=== PATIENT | male | born 1945 | race Caucasian/White ===

== ENCOUNTER 2017-06-29 09:40 | Emergency (ER) | payer OTHER ==
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
--- NOTE | 2017-06-29 11:04 | RAD ---
HISTORY: Cough, fatigue COMPARISONS: February 24, 2003 VIEWS: 4: Frontal dual-energy and lateral views of the chest. FINDINGS: CARDIOMEDIASTINAL SILHOUETTE: The cardiomediastinal silhouette is normal. CAMERON: The cameron are normal. PLEURA: The costophrenic angles are sharp. No pleural abnormalities are noted. LUNG PARENCHYMA: There is a 0.7 cm nodule overlying the left midlung field, not clearly visualized on the previous examination. There is additional second nodule of the left costophrenic angle. ABDOMEN: The upper abdomen is clear. There is no subphrenic gas. BONES AND SOFT TISSUES: Degenerative changes are noted along the spine. OTHER: None. IMPRESSION: LEFT MIDLUNG NODULE WITH A QUESTIONABLE SECOND NODULE IN THE LEFT LOWER LUNG. RECOMMEND CONSIDERATION OF CORRELATION WITH CT OF THE CHEST.
[2017-06-29] MEDS ORDERED: Ondansetron ODT TAB* 4 MG PO ONE (11:17)
[2017-06-29] MEDS ORDERED: Aspirin Low Dose CHEW TAB* 81 MG PO ONE (11:39)
[2017-06-29] MEDS ORDERED: NS 0.9% 1000 ML* 1,000 ML IV ONE (11:44)
[2017-06-29 12:46] VITALS: BP 156/78
== END 2017-06-29 11:45 | disposition short-term general hospital (02) ==
LOC: UCEAST 09:40
DX: R07.9 Chest pain, unspecified (principal); E11.9 Type 2 diabetes mellitus without complications; E78.5 Hyperlipidemia, unspecified; I10 Essential (primary) hypertension; J09.X2 Influenza due to identified novel influenza A virus with other respiratory manifestations; R91.8 Other nonspecific abnormal finding of lung field; R53.1 Weakness; Z88.6 Allergy status to analgesic agent
CPT/HCPCS: 71046; 87502; 93005; 99203; A9270-GY; G0463

== ENCOUNTER 2017-06-29 12:20 | Emergency (ER) | payer OTHER ==
[2017-06-29] MEDS ORDERED: methylPREDNISolone 125 MG* 2 ML VIAL IV ONE (13:01)
[2017-06-29] MEDS ORDERED: NS 0.9% 1000 ML* 1,000 ML IV ONE (13:01)
[2017-06-29 13:36] LABS: ABS Basophils 0.1 10^3/ul (0-0.2); ABS Eosinophils 0 10^3/ul (0-0.6); ABS Lymphocytes 0.5 10^3/ul (1.0-4.8); ABS Monocytes 0.8 10^3/ul (0-0.8); ABS Neutrophils 4.4 10^3/ul (1.5-7.7); ABS Nucleated RBC 0 10^3/ul; Eosinophil % 0.5 % (0-6); Hematocrit 32 % (42-52); Hemoglobin 10.9 g/dl (14.0-18.0); Lymphocyte % 8.4 % (25-47); Mean Corpuscular HGB Conc 34 g/dl (31-36); Mean Corpuscular Hemoglobin 32 pg (27-31); Mean Corpuscular Volume 92 fL (80-94); Mean Platelet Volume 8 um3 (7.4-10.4); Nucleated Red Blood Cells % 0; Platelet Count 146 10^3/ul (150-450); Red Blood Count 3.44 10^6/ul (4.0-5.4); Red Cell Distribution Width 13 % (10.5-15); White Blood Count 5.7 10^3/ul (3.5-10.8)
[2017-06-29 13:52] LABS: EGFR Non-African American 69.1 (>60)
[2017-06-29 15:42] VITALS: BP 128/73
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
== END 2017-06-29 15:40 | disposition home or self-care (01) ==
LOC: ED 12:20
DX: J09.X2 Influenza due to identified novel influenza A virus with other respiratory manifestations (principal); R05 Cough; R11.0 Nausea
CPT/HCPCS: 36415; 80053; 83605; 83880; 84484; 85025; 93005; 99283; J2930

== ENCOUNTER 2019-07-22 13:25 | Inpatient (IN) | payer MEDICARE, OTHER ==
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
[2019-07-22 15:25] LABS: ABS Basophils 0.1 10^3/ul (0-0.2); ABS Eosinophils 0.1 10^3/ul (0-0.6); ABS Lymphocytes 1.2 10^3/ul (1.0-4.8); ABS Monocytes 0.5 10^3/ul (0-0.8); ABS Neutrophils 4.3 10^3/ul (1.5-7.7); Hematocrit 32 % (42-52); Lymphocyte % 19.9 %; Mean Corpuscular HGB Conc 34 g/dL (31-36); Mean Corpuscular Hemoglobin 32 pg (27-31); Mean Corpuscular Volume 93 fL (80-94); Nucleated Red Blood Cells % 0.1; Platelet Count 200 10^3/uL (150-450); Red Blood Count 3.46 10^6 /uL (4.18-5.48); Red Cell Distribution Width 14 % (10-15)
[2019-07-22 15:33] LABS: INR 0.96 (0.82-1.09)
[2019-07-22 15:37] LABS: Albumin 4.2 g/dL (3.2-5.2); Albumin/Globulin Ratio 1.6 (1-3); BUN/Creatinine Ratio 10.5 (8-20); Calcium 10.4 mg/dL (8.6-10.3); EGFR Non-African American 52.9 (>60); Globulin 2.7 g/dL (2-4); Potassium 4.4 mmol/L (3.5-5.0); Total Bilirubin 0.7 mg/dL (0.2-1.0); Total Protein 6.9 g/dL (6.4-8.9)
[2019-07-22] MEDS ORDERED: Morphine INJ* 2 MG/ML 1 ML SYRINGE (TWO MG - NEW SYRINGE VERSION) IV PRN (16:46)
[2019-07-22] MEDS ORDERED: Dextrose 50% VIAL 50 ml IV PUSH PRN (17:22)
[2019-07-22 17:30] LABS: Activated Partial Thrombo Time 31.7 seconds (26.0-38.0)
[2019-07-22] MEDS: Docusate CAP* 100 MG PO SCH (19:58)
[2019-07-22] MEDS: Atorvastatin* 40 MG TAB PO SCH (19:59)
[2019-07-22] MEDS: NS 0.9% 1000 ML** 1,000 ML IV SCH (20:02)
[2019-07-22] MEDS: Insulin LISPRO* 1 UNITS UNIT SUBCUT SCH (21:59)
[2019-07-22] MEDS: oxyCODONE/Acetamin 5/325 MG* TAB PO PRN (22:06)
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
[2019-07-23] MEDS: oxyCODONE/Acetamin 5/325 MG* TAB PO PRN ×2 (02:31→08:36)
[2019-07-23] MEDS: Melatonin 3 MG TAB PO PRN (02:32)
[2019-07-23 06:37] LABS: ABS Basophils 0.1 10^3/ul (0-0.2); ABS Eosinophils 0.2 10^3/ul (0-0.6); ABS Lymphocytes 1.4 10^3/ul (1.0-4.8); ABS Monocytes 0.7 10^3/ul (0-0.8); ABS Neutrophils 3.4 10^3/ul (1.5-7.7); Hematocrit 31 % (42-52); Hemoglobin 10.7 g/dL (14.0-18.0); Lymphocyte % 24.9 %; Mean Corpuscular HGB Conc 35 g/dL (31-36); Mean Corpuscular Hemoglobin 32 pg (27-31); Mean Corpuscular Volume 93 fL (80-94); Mean Platelet Volume 7.6 fL (7.4-10.4); Platelet Count 179 10^3/uL (150-450); Red Blood Count 3.32 10^6 /uL (4.18-5.48); Red Cell Distribution Width 14 % (10-15); White Blood Count 5.7 10^3/uL (3.5-10.8)
[2019-07-23 06:49] LABS: BUN/Creatinine Ratio 11.8 (8-20); Calcium 9.4 mg/dL (8.6-10.3); EGFR African American 58.3 (>60); EGFR Non-African American 48.2 (>60); Potassium 4.4 mmol/L (3.5-5.0)
[2019-07-23] MEDS: NS 0.9% 1000 ML** 1,000 ML IV SCH (07:17)
[2019-07-23] MEDS: Insulin LISPRO* 1 UNITS UNIT SUBCUT SCH ×4 (08:27→20:54)
[2019-07-23] MEDS: Docusate CAP* 100 MG PO SCH ×2 (08:27→20:53)
[2019-07-23] MEDS: Tamsulosin CAP* 0.4 MG PO SCH (08:36)
[2019-07-23] MEDS: CMCS:OMEGA-3 FATTY ACIDS (NF) 1,000 MG CAP PO SCH (08:38)
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
[2019-07-23] MEDS: Ondansetron INJ* 2 MG/ML VIAL IV PRN (11:45)
--- NOTE | 2019-07-23 12:35 | CONS ---
CONSULTATION REPORT: DATE OF CONSULT: 07/23/19 CHIEF COMPLAINT: Left hip pain. HISTORY OF PRESENT ILLNESS: Ravinder is a 74-year-old man who has a history of a left total knee replacement and a right total hip replacement done by Dr. Duran a few years ago. Yesterday, he was skiing at [place] and he fell down onto his left hip area. He said it was not a high energy fall, but he had sudden left hip pain. He was brought to the emergency department and had some x -rays, which show a comminuted displaced femoral neck fracture on the left. He also has left hip arthritis. He has a history of recurrent dislocations after his right total hip replacement, which was then revised to larger head and he has not had any dislocation since then. He also has history of some numbness in his left thigh after his knee replacement and he recently been getting some injections in his back which has been helping his left leg pain. PHYSICAL EXAM: On examination today, his foot is warm, well perfused. Neurovascular function is intact. Range of motion of his hip is painful. His skin is intact. DIAGNOSTIC STUDIES: I reviewed his x-ray, AP and lateral of the left hip which shows a comminuted femoral neck fracture with displacement. 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 PLAN: Plan is for a left total hip replacement done by Dr. Lyle and Dr. Kaufman, this was setup for tomorrow. The patient has been medically optimized. [id number]/[facility] #: [id number] [facility]
[2019-07-23] MEDS: Acetaminophen TAB* 325 MG PO PRN (13:49)
[2019-07-23] MEDS ORDERED: Ondansetron INJ* 2 MG/ML VIAL IV ONE (15:16)
[2019-07-23] MEDS ORDERED: NS 0.9% 1000 ML** 1,000 ML IV SCH (16:30)
[2019-07-23] MEDS: Scopolamine 1.5 mg* PATCH TRANSDERM SCH (17:20)
--- NOTE | 2019-07-23 18:51 | PN ---
Progress Note - Progress Note Date of Service: 07/23/19 SOAP: Subjective: Spoke with Dr. Perez about patient. Just met patient. He is retired. He fell on his left hip skiing yesterday when he hit a patch of ice. No prior history of left hip pain. History of multiple joint arthroplasties, all by Dr. Duran of [place]. Right DALE complicated by multiple dislocations postop followed by a revision right DALE in 2010. He knows that the head was 28mm, but otherwise does not have an op note or know which components were used. Also a left TKA in 2008. DM. He states that his most recent A1C was 7.4. Some recent lower back pain treated with 3 injections in a pain clinic. Some recent emesis treated with scopolamine patch. Objective: NAD LLE: - NVID - DP, PT pulses intact - Deferred passive ROM knee and hip to minimize discomfort Selected Entries 07/23/19 16:15 Temperature 98.5 F Pulse Rate 77 Respiratory 20 Rate Blood Pressure 156/80 (mmHg) O2 Sat by Pulse 92 Oximetry Laboratory Tests 07/22/19 07/22/19 07/23/19 15:10 21:05 06:25 WBC 6.0 5.7 Hct 32 L 31 L POC Glucose (mg/dL) 294 H 07/23/19 08:10 WBC Hct POC Glucose (mg/dL) 210 H X-rays: Displaced left hip femoral neck fracture. Right total hip arthroplasty in place. Assessment: HD 2 displaced left femoral neck hip fracture Plan: - Discussed with patient hip fractures and different anatomic locations of hip fractures and how they are treated surgically - Discussed risks and potential complications of surgery as well as medical risks of hip fractures - The patient is optimized/cleared per Hospitalist service - NPO after midnight - Plan for left total hip arthroplasty for fracture at 8 am Thursday morning - Discussed that I will do the procedure with my partner Dr. Kaufman - As needed, based on exam tomorrow, I might consider xrays left knee to confirm no fracture about left TKA - Current nausea/vomiting manage per Hospitalist
[2019-07-23] MEDS: Atorvastatin* 40 MG TAB PO SCH (20:53)
[2019-07-23] MEDS ORDERED: Insulin GLARGINE(*) 1 UNITS UNIT SUBCUT SCH (21:00)
[2019-07-23] MEDS ORDERED: Famotidine IV* 10 MG/ML 2 ML (20 mg) IV ONE (21:56)
[2019-07-23] MEDS ORDERED: Buffered Lidocaine 1% SYRIN* 1 ML/SYRINGE INTRADERM ONE (21:56)
[2019-07-23] MEDS ORDERED: Lactated Ringers 1000 ML Bag* 1,000 ML IV SCH (22:00)
[2019-07-24 05:16] LABS: ABS Basophils 0.1 10^3/ul (0-0.2); ABS Eosinophils 0.1 10^3/ul (0-0.6); ABS Lymphocytes 1.3 10^3/ul (1.0-4.8); ABS Monocytes 0.7 10^3/ul (0-0.8); ABS Neutrophils 5.8 10^3/ul (1.5-7.7); Eosinophil % 0.8 %; Hematocrit 32 % (42-52); Hemoglobin 10.8 g/dL (14.0-18.0); Lymphocyte % 16.1 %; Mean Corpuscular HGB Conc 34 g/dL (31-36); Mean Corpuscular Hemoglobin 32 pg (27-31); Mean Corpuscular Volume 93 fL (80-94); Mean Platelet Volume 7.7 fL (7.4-10.4); Platelet Count 179 10^3/uL (150-450); Red Cell Distribution Width 13 % (10-15); White Blood Count 7.9 10^3/uL (3.5-10.8)
[2019-07-24 05:33] LABS: BUN/Creatinine Ratio 10.8 (8-20); Calcium 9.9 mg/dL (8.6-10.3); EGFR African American 60.8 (>60); EGFR Non-African American 50.2 (>60); Potassium 4.5 mmol/L (3.5-5.0)
[2019-07-24] MEDS ORDERED: fentaNYL* 50 MCG/ML 2 ML VIAL (100 MCG VIAL) ONE (07:53)
[2019-07-24] MEDS ORDERED: Midazolam* 1 MG/ML 2 ML VIAL (2 MG) ONE (07:53)
[2019-07-24] MEDS ORDERED: Famotidine IV* 10 MG/ML 2 ML (20 mg) ONE (08:18)
[2019-07-24] MEDS ORDERED: ceFAZolin 2 GM in NS PREMIX(*) 2 GM/100 ML BAG IVPB ONE (08:22)
[2019-07-24] MEDS ORDERED: KETAMINE HCL* 50 MG/ML 10 ML VIAL ONE (08:33)
[2019-07-24] MEDS ORDERED: Propofol* 10 MG/ML 20 ML BTL ONE (08:36)
[2019-07-24] MEDS ORDERED: Succinylcholine* 20 MG/ML 10 ML VIAL ONE (08:36)
[2019-07-24] MEDS ORDERED: Ondansetron INJ* 2 MG/ML VIAL ONE (08:36)
[2019-07-24] MEDS ORDERED: Lidocaine 2% PF * 5 ML VIAL ONE (08:36)
[2019-07-24] MEDS ORDERED: Dexamethasone IV* 4 MG/ML 1 ML (4 MG) ONE (08:36)
[2019-07-24] MEDS ORDERED: Rocuronium* 10 MG/ML VIAL ONE (08:37)
[2019-07-24] MEDS ORDERED: Naloxone* 0.4 MG/ML 1 ML VIAL IV PRN (09:34)
[2019-07-24] MEDS ORDERED: fentaNYL* 50 MCG/ML 2 ML VIAL (100 MCG VIAL) IV PRN (09:34)
[2019-07-24] MEDS ORDERED: Phenylephrine 40 MCG/ML SYRINGE ONE (09:34)
[2019-07-24] MEDS ORDERED: Acetaminophen IV 1GM/100ML * 100 ML ONE (09:34)
[2019-07-24] MEDS ORDERED: diPHENhydraMINE IV* 50 MG/ML 1 ml VIAL (BENADRYL) IV PRN (09:34)
[2019-07-24] MEDS ORDERED: DiMENhydriNATE IV* 50 MG/ML VIAL IV PUSH PRN (09:34)
[2019-07-24] MEDS ORDERED: Bupivacaine 0.5% W/EPI SDV* 30 ML VIAL ONE (10:26)
[2019-07-24] MEDS: Insulin LISPRO* 1 UNITS UNIT SUBCUT SCH ×2 (10:35→13:30)
[2019-07-24] MEDS: Tamsulosin CAP* 0.4 MG PO SCH (13:30)
[2019-07-24] MEDS: Docusate CAP* 100 MG PO SCH ×3 (13:30→20:46)
[2019-07-24] MEDS: CMCS:OMEGA-3 FATTY ACIDS (NF) 1,000 MG CAP PO SCH (13:30)
[2019-07-24] MEDS ORDERED: HYDROcodone/ACETAMIN 5-325 MG* 1 TAB PO PRN (14:10)
[2019-07-24] MEDS ORDERED: oxyCODONE TAB* 5 MG TAB PO PRN (14:10)
[2019-07-24] MEDS ORDERED: traMADol TAB* 50 MG PO PRN (14:19)
[2019-07-24] MEDS ORDERED: LR @ 20 MLS/HR IV SCH (15:00)
--- NOTE | 2019-07-24 16:28 | PN ---
Subjective Date of Service: 07/24/19 Interval History: Pt has returned from surgery, pt denies any pain, nausea, vomiting, dizziness. Family History: Unchanged from Admission Social History: Unchanged from Admission Past Medical History: Unchanged from Admission Objective Active Medications: Acetaminophen (Tylenol Tab*) 650 mg PO Q4H PRN PRN Reason: MILD PAIN or TEMP > 100.4 Last Admin: 07/23/19 13:49 Dose: 650 mg Hydrocodone Bitart/Acetaminophen ([place] 5-325 Tab*) 1 tab PO Q4H PRN PRN Reason: PAIN - MODERATE Hydrocodone Bitart/Acetaminophen ([place] 5-325 Tab*) 2 tab PO Q4H PRN PRN Reason: PAIN - SEVERE Apixaban (Eliquis*) 2.5 mg PO BID [facility] Atorvastatin Calcium (Lipitor*) 40 mg PO 2100 [facility] Last Admin: 07/23/19 20:53 Dose: 40 mg Docusate Sodium (Colace Cap*) 100 mg PO TID [facility] Last Admin: 07/24/19 15:53 Dose: 100 mg Fish Oil (Fish Oil (Nf)) 1,000 mg PO DAILY [facility]; Protocol Last Admin: 07/24/19 13:30 Dose: Not Given Cefazolin Sodium 1 gm/ Sodium (Chloride) 50 mls @ 200 mls/hr IVPB Q8H [facility] Stop: 07/25/19 09:14 Lactated Ringer's (Lactated Ringers 1000 Ml Bag*) 1,000 mls @ 100 mls/hr IV PER RATE [facility] Stop: 07/25/19 00:59 Magnesium Hydroxide (Milk Of Magnesia Liq*) 30 ml PO Q6H PRN PRN Reason: CONSTIPATION Melatonin (Melatonin) 3 mg PO BEDTIME PRN PRN Reason: SLEEP Last Admin: 07/23/19 02:32 Dose: 3 mg Morphine Sulfate (Morphine Inj (Syringe))*) 2 mg IV Q4H PRN PRN Reason: BREAKHROUGH PAIN Last Admin: 07/24/19 01:21 Dose: 2 mg Ondansetron HCl (Zofran Inj*) 4 mg IV Q4H PRN PRN Reason: NAUSEA/VOMITING Last Admin: 07/23/19 11:45 Dose: 4 mg Oxycodone HCl (Roxycodone Tab*) 10 mg PO Q4H PRN PRN Reason: PAIN - SEVERE Scopolamine (Transderm-Scop 1.5 Mg Patch*) 1 patch TRANSDERM Q72H [facility] Last Admin: 07/23/19 17:20 Dose: 1 patch Tamsulosin HCl (Flomax Cap*) 0.4 mg PO DAILY [facility] Last Admin: 07/24/19 13:30 Dose: Not Given Tramadol HCl (Ultram*) 50 mg PO Q6H PRN PRN Reason: PAIN - MILD Last Admin: 07/24/19 15:53 Dose: 50 mg Vital Signs - 8 hr 07/24/19 07/24/19 07/24/19 11:54 11:55 12:00 Temperature 96.8 F Pulse Rate 89 80 Respiratory 14 18 23 Rate Blood Pressure 151/82 133/84 142/87 (mmHg) O2 Sat by Pulse 88 97 Oximetry 07/24/19 07/24/19 07/24/19 12:05 12:10 12:11 Temperature Pulse Rate 79 87 Respiratory 16 16 21 Rate Blood Pressure 144/84 138/80 (mmHg) O2 Sat by Pulse 98 96 Oximetry 07/24/19 07/24/19 07/24/19 12:15 12:16 12:20 Temperature Pulse Rate 70 70 Respiratory 14 16 16 Rate Blood Pressure 133/79 155/89 (mmHg) O2 Sat by Pulse 99 97 Oximetry 07/24/19 07/24/19 07/24/19 12:30 12:45 13:01 Temperature Pulse Rate 70 80 Respiratory 18 16 16 Rate Blood Pressure 141/83 146/73 (mmHg) O2 Sat by Pulse 96 93 Oximetry 07/24/19 07/24/19 07/24/19 13:31 14:20 15:15 Temperature 97.7 F 98.3 F 97.4 F Pulse Rate 64 69 81 Respiratory 14 16 16 Rate Blood Pressure 138/69 128/69 152/71 (mmHg) O2 Sat by Pulse 97 95 95 Oximetry 07/24/19 07/24/19 15:53 16:00 Temperature Pulse Rate Respiratory 18 Rate Blood Pressure (mmHg) O2 Sat by Pulse 95 Oximetry Oxygen Devices in Use Now: Nasal Cannula Appearance: Elderly gentleman laying in bed head elevated chatting with family at bedside. Pt does not appear to be in any distress. Ears/Nose/Mouth/Throat: NL Teeth, Lips, Gums, Clear Oropharnyx, Mucous Membranes Moist Neck: NL Appearance and Movements; NL JVP, Trachea Midline, No Thyroid Enlargement, Masses Respiratory: Symmetrical Chest Expansion and Respiratory Effort, Clear to Auscultation Cardiovascular: NL Sounds; No Murmurs; No JVD, RRR, No Edema Abdominal: NL Sounds; No Tenderness; No Distention, No Hepatosplenomegaly Extremities: No Edema, - - dressing is CDI, +2 pedal pulses bilaterally. +CMST in bilateral lower extremities. Skin: No Rash or Ulcers, No Nodules or Sclerosis Neurological: Alert and Oriented x 3, NL Sensation, NL Muscle Strength and Tone Result Diagrams: 07/25/19 05:11 07/25/19 05:11 Assess/Plan/Problems-Billing Assessment: 73 yo male patient with hx significant for Diabetes, HTN, Right hip arthroplasty, and Left Knee replacement. Pt comes to hospital after mechanical fall while skiing with left hip fracture - Patient Problems (1) Hip fracture, left Comment: -dressing CDI -No complaints of pain -Avoid percocet for pain control as patient developed nausea and vomiting previously (2) Diabetes Comment: -Holding lantus and lispro at this time. -Glimepride reordered Holding metformin as patient recieved IV contrast with CT scan 07/24/19 (3) HTN (hypertension) Comment: -Continue holding lisinopril. BP controlled at this time. (4) Hyperlipidemia Comment: -Continue Lipitor 40mg (5) Acute kidney injury Comment: Cr remains elevated at 1.52 GFR 45.3 (6) Nausea & vomiting Comment: -Pt denies nausea or vomiting today, -avoid percocet as it causes N/V (7) BPH (benign prostatic hyperplasia) Comment: -Continue Flomax 0.4mg -Urinating without flow obstruction (8) DVT prophylaxis Comment: -will be managed per orthopedics -Elequis (9) Full code status
[2019-07-24] MEDS: ceFAZolin 1 GM* X 3 DOSES POST-OP Q8H (AddVan) IVPB SCH ×2 (16:36)
--- NOTE | 2019-07-24 17:17 | OP ---
OPERATIVE REPORT: DATE OF OPERATION: 07/24/19 DATE OF : 49 SURGEON: Hai Lyle MD ASSISTANTS: 1. Jad Kaufman MD 2. SHAINA Thakkar ANESTHESIOLOGIST: Dr. Sorin Ball. ANESTHESIA: General anesthesia, local anesthesia consisting of Marcaine 0.5% with epinephrine, 30 cc. PRE-OP DIAGNOSES: 1. Left hip fracture, femoral neck, displaced. 2. Left hip osteoarthritis. POST-OP DIAGNOSES: 1. Left hip fracture, femoral neck, displaced. 2. Left hip osteoarthritis. OPERATIVE PROCEDURE: Left total hip arthroplasty. ANTIBIOTICS: Ancef 2 g IV. IV FLUIDS: 1500 cc crystalloid. ESTIMATED BLOOD LOSS: Less than 100 cc. URINE OUTPUT: 400 cc. [id number] TIME: 130 minutes. SPECIMEN: Proximal femur bone and cartilage sent to Pathology. IMPLANTS: Aníbal Accolade femoral stem size 8 with a 127-degree neck shaft angle. A 36 mm ceramic femoral head Biolox. A Trident Tritanium cluster hole acetabular shell size 54 mm. A 0-degree polyethylene insert, 36 mm, E. Two screws each 6.5 mm in diameter, one of which was 30 mm long, the other 25 mm long. COMPLICATIONS: None. INDICATIONS FOR PROCEDURE: The patient is a 74-year-old man, retired, with diabetes mellitus and a recent A1c of 7.4, who fell directly on his left hip while skiing on 07/22/19. The patient was brought to the emergency room at [facility] where he was diagnosed with a displaced left hip femoral neck fracture. Of note, the patient had had an elective right total hip arthroplasty in the distant past, which postoperatively had many instability episodes. That hip was subsequently revised in 2010 and stopped dislocating. The patient has also had a left total knee arthroplasty performed in 2008. All of these prior arthroplasty surgeries were done by Dr. Duran in [place]. The patient stated that prior to this fall, he did note that the right lower extremity was longer than the left lower extremity and that the patient helped to offset the imbalance with an insert in his left shoe, which he described as 3 /8ths of an inch in size. The patient noted that he has had some left lumbar radiculopathy, which has been treated by 3 injections in the lumbar spine in a pain clinic with some success. A partner of [facility] did a consultation on this patient. I met this patient yesterday and discussed with him potential risks and complications of surgery as well as medical problems that can happen after hip fracture. These included , but were not limited to bleeding, infection, nerve or blood vessel injury, loosening of hardware, need for revision surgery, joint instability, persistent pain, blood clot, pneumonia, atelectasis, decubitus ulcers. I talked about the anatomy of different type of hip fractures and how this patient's fracture was appropriate for joint arthroplasty as the surgical solution. The patient gave some varying answers as to how painful this left hip was prior to this recent fracture injury. Radiographically, there is clear evidence of osteoarthritis in the left hip joint. Given the better functional data resulting from full joint arthroplasty versus hemiarthroplasty in active patients along with this patient's preexisting osteoarthritis, we felt that the full total hip arthroplasty rather than the hemiarthroplasty was the most appropriate surgery. The patient understood. The patient was cleared and optimized by the hospitalist service into which he was admitted from the emergency room. DESCRIPTION OF PROCEDURE: In preoperative holding, the patient signed a written consent. Operative extremity was marked in preoperative holding. The patient was taken back to the operating room. On the stretcher, he was sedated and intubated. We transferred him to the operating room table supine. We then converted him to a lateral decubitus position. Axillary roll was placed. Pegboard was utilized and 4 pegs were placed. The patient was confirmed to be on his side without angulation anterior or posterior. All bony prominences were well padded. A Sanchez catheter had been placed with the patient supine prior to conversion to the lateral decubitus position. I placed a U-drape and a 10-10 drape about the left lower extremity prior to the scrub. The patient then had a scrub and then prep left lower extremity. We then draped the left lower extremity. Surgical time-out performed formally. I made my skin oblique incision about the posterolateral hip, for the posterior approach to the hip joint. Dissected down through soft tissue, subcutaneous tissue. Arrived at the gluteus gus and ITB muscle fascia layer. Incised that in line with my skin incision. Abducted the hip so as not to injure the deep vastus lateralis. Placed a self-retractor about the muscle fascia layer. Extended the hip and internally rotated it. Removed some trochanteric bursa. Identified external rotators. Cleared off the superficial aspect of them, removing some fat. Placed Cobra retractors deep to the hip abductors and distal to the external rotators around the lesser trochanter. Released the external rotators and posterior capsule in 1 block of tissue. Placed 4 stitches through the external rotator muscles, tendons and posterior capsule. All the purchase of the stitches was excellent. I used these stitches to manipulate the posterior tissues and prevent them from becoming injured during the case. Flexed the hip. Identified just over a centimeter proximal to the lesser trochanter after retractors have been placed and used oscillating saw to make a femoral neck cut. Used rongeur to remove small pieces of femoral neck that had been cut. Retracted femur out of the way and removed femoral head from the acetabulum. Sized the femoral head to be about 54 or 56 mm. I placed retractors circumferentially around the acetabulum. Exposure of the acetabulum was excellent. Removed labrum tissue. Removed pulvinar tissue. Excellent view of the medial wall of the acetabulum. Templating preoperatively had determined an approximate size of the components required, although we felt that the magnification marker on preoperative radiographs was actually not accurate. Started my reaming with a 42 mm reamer. Medialized a bit. Reamed up to a 54 mm reamer. Reamed with the appropriate amount of forward flexion and abduction. We opened up a 54 mm Tritanium acetabular shell. We tried impacting this into the acetabulum. The fit was not quite secure enough. There was some gapping about the periphery. We therefore decided to medialize the shell a bit. We removed the shell and reamed a little bit more medial starting with a smaller reaming size and reaming up to 53. With the medialization, we got through the sclerotic osteoarthritic acetabular bone to some bleeding bone surfaces. Impacted cup in the appropriate amount of flexion and abduction. The fit to bone was excellent. You could move the pelvis by moving the cup with its bilingual patient support caseworker still in place. Removed the bilingual patient support caseworker. Placed 2 screws through the acetabular shell both directed into the posterosuperior quadrant of the acetabulum. One screw was 30 mm long and the other was 25 mm long. These screws were placed unicortically. Irrigation. Placed a lap pad and moved to the femur. Flexed the femur. I used a canal finder followed by broaches starting with the smallest size broach. Lateralized broach appropriately to avoid varus position of the implant. Broached up to a size 8. Used a trial head. Construct was stable and appeared close to the appropriate limb length. Irrigation. Placed a size 8, 127 neck angle Accolade femoral implant. Again, trialed with a trial head. Then placed a ceramic femoral head size 36 mm. I should state that after my first trial I then moved back to the acetabulum and placed my polyethylene insert 0 degrees prior to then placing my final femoral stem implant. Final trials and final implant were quite stable. No shuck with traction or lateral traction. No impingement with full flexion or extension. With the hip not adducted but in neutral and flexed to 90 degrees, the hip was stable until at least 75 degrees of internal rotation. With the hip adducted significantly, the hip reached at least 50 degrees of internal rotation prior to any instability of the hip. Limb length, that we had measured preoperatively, improved, with significant length added to the left lower extremity compared to preoperative. However, the right lower extremity was still likely longer than the left. We had intended to make the left lower extremity long enough for stability and perhaps to even out a slight amount of the limb length discrepancy. However, we did not want to over lengthen or lengthen too much the left lower extremity given that the patient already has radicular symptoms down the left lower extremity and lengthening too much might exacerbate the symptoms. After all of the final implants had been placed, we irrigated. Closure of the external rotators was performed with 4 pairs of sutures placed through 2 drill holes in the posterior aspect of the proximal femur. Stitches were tied with the hip extended and externally rotated slightly. I also placed 2 [id number] stitches using Ethibond #1 suture between the hip abductors and the piriformis tendon. Irrigation. Closure of the gluteus gus and ITB fascial layer with 3 separate overlapping running stitches using Ethibond #1 suture. Irrigation. Closure of the subcutaneous tissue with buried simple stitches using Vicryl 2-0 suture. Some deep subcutaneous stitches were placed followed by superficial subcutaneous stitches. We then closed the skin with vance. Local anesthetic was placed. Xeroform, 4x4s, ABDs, foam tape. Drapes were taken down. Hip abduction pillow was placed. The patient was awakened, extubated, and transferred to the PACU. DISPOSITION: The patient was readmitted to the hospitalist service with Orthopedic Surgery consulting. In the PACU, the patient was neurovascularly intact distally left lower extremity. X-rays obtained in the PACU showed well placed left total hip arthroplasty hardware. No periprosthetic fracture. Limb length discrepancy appeared to be that the right lower extremity was approximately 17 to 18 mm longer than the left lower extremity. I suspect this is about the patient's pre fracture baseline. The patient will do physical therapy, weightbearing as tolerated left lower extremity. He will follow posterior hip precautions. He will get Ancef IV antibiotics for 24 hours postoperatively. He will get IV and oral pain medication for pain management. The patient will follow up with me in clinic 10 to 14 days postoperatively. Wound care instructions were discussed with the family. Disposition planning will be started. Speaking to the patient and his family, it seems that he will be appropriate for a rehabilitation facility. [id number]/CPS #: [id number] OLMAN
[2019-07-24] MEDS: HYDROcodone/ACETAMIN 5-325 MG* 1 TAB PO PRN (17:35)
[2019-07-24] MEDS: Atorvastatin* 40 MG TAB PO SCH (20:46)
[2019-07-24 22:50] LABS: ABS Lymphocytes 0.4 10^3/ul (1.0-4.8); ABS Monocytes 0.8 10^3/ul (0-0.8); ABS Neutrophils 6.6 10^3/ul (1.5-7.7); Hematocrit 27 % (42-52); Hemoglobin 9.2 g/dL (14.0-18.0); Lymphocyte % 5.4 %; Mean Corpuscular HGB Conc 34 g/dL (31-36); Mean Corpuscular Hemoglobin 32 pg (27-31); Mean Corpuscular Volume 93 fL (80-94); Mean Platelet Volume 7.8 fL (7.4-10.4); Nucleated Red Blood Cells % 0.1; Platelet Count 183 10^3/uL (150-450); Red Cell Distribution Width 13 % (10-15); White Blood Count 7.9 10^3/uL (3.5-10.8)
[2019-07-24] MEDS ORDERED: Iodixanol* (CONTRAST) 320 MG/ML 100 ML SDV IV ONE (22:59)
[2019-07-24 23:08] LABS: BUN/Creatinine Ratio 13.6 (8-20); Calcium 9.5 mg/dL (8.6-10.3); EGFR African American 46.3 (>60); EGFR Non-African American 38.3 (>60); Potassium 4.3 mmol/L (3.5-5.0)
[2019-07-24 23:10] LABS: Troponin I 0.01 ng/mL (<0.03)
[2019-07-24] MEDS ORDERED: Lactated Ringers 1000 ML Bag* 1,000 ML IV ONE (23:20)
[2019-07-25] MEDS: ceFAZolin 1 GM* X 3 DOSES POST-OP Q8H (AddVan) IVPB SCH ×4 (01:11→09:02)
[2019-07-25 05:36] LABS: Hematocrit 25 % (42-52); Hemoglobin 8.8 g/dL (14.0-18.0)
[2019-07-25 05:47] LABS: BUN/Creatinine Ratio 15.8 (8-20); Calcium 9.3 mg/dL (8.6-10.3); EGFR African American 54.8 (>60); EGFR Non-African American 45.3 (>60); Potassium 4.1 mmol/L (3.5-5.0)
[2019-07-25] MEDS: Acetaminophen TAB* 325 MG PO PRN ×2 (06:12→18:07)
[2019-07-25] MEDS: Docusate CAP* 100 MG PO SCH ×3 (09:02→22:28)
[2019-07-25] MEDS: Apixaban* 2.5 MG TAB PO SCH ×2 (09:02→22:28)
[2019-07-25] MEDS: Tamsulosin CAP* 0.4 MG PO SCH (09:02)
--- NOTE | 2019-07-25 09:34 | PN ---
Progress Note - Progress Note Date of Service: 07/25/19 SOAP: Subjective: Pt is doing well. Pain is well controlled. Denies F/C, Cp/SOB or calf pain. Objective: PE- 74 y/o WDWN M NAD, A&Ox3 LLE- dressing c/d/i, calf soft NT, +DF/PF ankle, +2 DP pulse, SILT distally Vital Signs Temp Pulse Resp BP Pulse Ox 98 F 100 19 120/94 95 07/25/19 07:19 07/25/19 07:19 07/25/19 07:19 07/25/19 07:19 07/25/19 07:19 Laboratory Results - last 24 hr 07/24/19 07/24/19 07/24/19 12:14 17:59 20:49 WBC RBC Hgb Hct MCV MCH MCHC RDW Plt Count MPV Neut % (Auto) Lymph % (Auto) [place] % (Auto) Eos % (Auto) Baso % (Auto) Absolute Neuts (auto) Absolute Lymphs (auto) Absolute Monos (auto) Absolute Eos (auto) Absolute Basos (auto) Absolute Nucleated RBC Nucleated RBC % ABG pH ABG pCO2 ABG pO2 ABG HCO3 ABG O2 Saturation ABG Base Excess Sodium Potassium Chloride Carbon Dioxide Anion Gap BUN Creatinine Est GFR ( Amer) Est GFR (Non-Af Amer) BUN/Creatinine Ratio Glucose POC Glucose (mg/dL) 77 353 H 302 H Calcium Troponin I 07/24/19 07/24/19 07/24/19 22:40 22:41 22:41 WBC 7.9 RBC 2.90 L Hgb 9.2 L Hct 27 L MCV 93 MCH 32 H MCHC 34 RDW 13 Plt Count 183 MPV 7.8 Neut % (Auto) 83.8 Lymph % (Auto) 5.4 [place] % (Auto) 10.5 Eos % (Auto) 0.0 Baso % (Auto) 0.3 Absolute Neuts (auto) 6.6 Absolute Lymphs (auto) 0.4 L Absolute Monos (auto) 0.8 Absolute Eos (auto) 0.0 Absolute Basos (auto) 0.0 Absolute Nucleated RBC 0.0 Nucleated RBC % 0.1 ABG pH 7.46 H ABG pCO2 33 L ABG pO2 74 L ABG HCO3 25.1 ABG O2 Saturation 97.1 ABG Base Excess 0.3 Sodium 134 L Potassium 4.3 Chloride 103 Carbon Dioxide 22 Anion Gap 9 BUN 24 Creatinine 1.76 H Est GFR ( Amer) 46.3 Est GFR (Non-Af Amer) 38.3 BUN/Creatinine Ratio 13.6 Glucose 349 H POC Glucose (mg/dL) Calcium 9.5 Troponin I 0.01 07/25/19 07/25/19 05:11 05:11 WBC RBC Hgb 8.8 L Hct 25 L MCV MCH MCHC RDW Plt Count MPV Neut % (Auto) Lymph % (Auto) [place] % (Auto) Eos % (Auto) Baso % (Auto) Absolute Neuts (auto) Absolute Lymphs (auto) Absolute Monos (auto) Absolute Eos (auto) Absolute Basos (auto) Absolute Nucleated RBC Nucleated RBC % ABG pH ABG pCO2 ABG pO2 ABG HCO3 ABG O2 Saturation ABG Base Excess Sodium 134 L Potassium 4.1 Chloride 103 Carbon Dioxide 25 Anion Gap 6 BUN 24 Creatinine 1.52 H Est GFR ( Amer) 54.8 Est GFR (Non-Af Amer) 45.3 BUN/Creatinine Ratio 15.8 Glucose 265 H POC Glucose (mg/dL) Calcium 9.3 Troponin I Assessment: POD 1 S/P left total hip arthroplasty Plan: WBAT-PT/OT Posterior hip precautions Cont norco for pain, avoid percocet because it causes stomach upset Eliquis for DVT prophylaxis
[2019-07-25] MEDS: CMCS:OMEGA-3 FATTY ACIDS (NF) 1,000 MG CAP PO SCH (09:38)
[2019-07-25] MEDS: Magnesium Hydroxide LIQ* 30 ML UDC PO PRN (11:38)
--- NOTE | 2019-07-25 14:06 | PN ---
Subjective Date of Service: 07/25/19 Interval History: Pt denies any pain at rest. Denies chest pain, SOB, Dizziness. Reports numbness and tingling in his feet related to his fibromyalgia. Denies nausea or vomiting. Reports that he has been up to restroom but unable to have bowel movement thus far. Denies dysuria or hematuria. Family History: Unchanged from Admission Social History: Unchanged from Admission Past Medical History: Unchanged from Admission Objective Active Medications: Acetaminophen (Tylenol Tab*) 650 mg PO Q4H PRN PRN Reason: MILD PAIN or TEMP > 100.4 Last Admin: 07/25/19 06:12 Dose: 650 mg Hydrocodone Bitart/Acetaminophen ([place] 5-325 Tab*) 1 tab PO Q4H PRN PRN Reason: PAIN - MODERATE Last Admin: 07/24/19 17:35 Dose: 1 tab Hydrocodone Bitart/Acetaminophen ([place] 5-325 Tab*) 2 tab PO Q4H PRN PRN Reason: PAIN - SEVERE Apixaban (Eliquis*) 2.5 mg PO BID [facility] Last Admin: 07/25/19 09:02 Dose: 2.5 mg Atorvastatin Calcium (Lipitor*) 40 mg PO 2100 [facility] Last Admin: 07/24/19 20:46 Dose: 40 mg Docusate Sodium (Colace Cap*) 100 mg PO TID [facility] Last Admin: 07/25/19 09:02 Dose: 100 mg Fish Oil (Fish Oil (Nf)) 1,000 mg PO DAILY [facility]; Protocol Last Admin: 07/25/19 09:38 Dose: 1,000 mg Glimepiride (Glimepiride (Nf)) 1 mg PO BID [facility] Magnesium Hydroxide (Milk Of Magnesia Liq*) 30 ml PO Q6H PRN PRN Reason: CONSTIPATION Last Admin: 07/25/19 11:38 Dose: 30 ml Melatonin (Melatonin) 3 mg PO BEDTIME PRN PRN Reason: SLEEP Last Admin: 07/23/19 02:32 Dose: 3 mg Morphine Sulfate (Morphine Inj (Syringe))*) 2 mg IV Q4H PRN PRN Reason: BREAKHROUGH PAIN Last Admin: 07/24/19 01:21 Dose: 2 mg Ondansetron HCl (Zofran Inj*) 4 mg IV Q4H PRN PRN Reason: NAUSEA/VOMITING Last Admin: 07/23/19 11:45 Dose: 4 mg Oxycodone HCl (Roxycodone Tab*) 10 mg PO Q4H PRN PRN Reason: PAIN - SEVERE Scopolamine (Transderm-Scop 1.5 Mg Patch*) 1 patch TRANSDERM Q72H [facility] Last Admin: 07/23/19 17:20 Dose: 1 patch Tamsulosin HCl (Flomax Cap*) 0.4 mg PO DAILY [facility] Last Admin: 07/25/19 09:02 Dose: 0.4 mg Tramadol HCl (Ultram*) 50 mg PO Q6H PRN PRN Reason: PAIN - MILD Last Admin: 07/24/19 15:53 Dose: 50 mg Vital Signs - 8 hr 07/25/19 07/25/19 07/25/19 07:15 07:19 11:57 Temperature 98 F Pulse Rate 100 Respiratory 19 18 Rate Blood Pressure 120/94 (mmHg) O2 Sat by Pulse 95 95 Oximetry Oxygen Devices in Use Now: Nasal Cannula - 3LNC Appearance: Sitting in chair, sleeping. Does not appear to be in any distress. Eyes: No Scleral Icterus, PERRLA Ears/Nose/Mouth/Throat: NL Teeth, Lips, Gums, Clear Oropharnyx, Mucous Membranes Moist Neck: NL Appearance and Movements; NL JVP, Trachea Midline Respiratory: Symmetrical Chest Expansion and Respiratory Effort, Clear to Auscultation Cardiovascular: NL Sounds; No Murmurs; No JVD, RRR, No Edema Abdominal: NL Sounds; No Tenderness; No Distention, No Hepatosplenomegaly Lymphatic: No Cervical Adenopathy Extremities: - - +1 nonpitting edema noted in bilateral feet. Skin: No Rash or Ulcers, No Nodules or Sclerosis Neurological: Alert and Oriented x 3, NL Sensation, NL Muscle Strength and Tone Result Diagrams: 07/25/19 05:11 07/25/19 05:11 Assess/Plan/Problems-Billing Assessment: 73 yo male patient with hx significant for Diabetes, HTN, Right hip arthroplasty , and Left Knee replacement. Pt comes to hospital after mechanical fall while skiing with left hip fracture - Patient Problems (1) Hip fracture, left Comment: -dressing CDI -No complaints of pain -Avoid percocet for pain control as patient developed nausea and vomiting previously (2) Diabetes Comment: -Holding lantus and lispro at this time. -Glimepride reordered Holding metformin as patient recieved IV contrast with CT scan 07/24/19 (3) HTN (hypertension) Comment: -Continue holding lisinopril. BP controlled at this time. (4) Hyperlipidemia Comment: -Continue Lipitor 40mg (5) Acute kidney injury Comment: Cr remains elevated at 1.52 GFR 45.3 (6) Nausea & vomiting Comment: -Pt denies nausea or vomiting today, -avoid percocet as it causes N/V (7) BPH (benign prostatic hyperplasia) Comment: -Continue Flomax 0.4mg -Urinating without flow obstruction (8) DVT prophylaxis Comment: -will be managed per orthopedics -Elekun (9) Full code status
[2019-07-25] MEDS ORDERED: Dextrose 50% Syringe 50 ML* 25 GM/50 ML SYRINGE IV PUSH PRN (14:24)
[2019-07-25] MEDS: Insulin LISPRO* 1 UNITS UNIT SUBCUT SCH ×2 (18:07→22:30)
[2019-07-25] MEDS: CMC:Glimepiride (NF) 2 MG TAB PO SCH (22:28)
[2019-07-25] MEDS: Atorvastatin* 40 MG TAB PO SCH (22:28)
[2019-07-26 04:55] LABS: ABS Lymphocytes 1.1 10^3/ul (1.0-4.8); ABS Neutrophils 4.3 10^3/ul (1.5-7.7); Eosinophil % 0.5 %; Hematocrit 24 % (42-52); Lymphocyte % 16.5 %; Mean Corpuscular HGB Conc 34 g/dL (31-36); Mean Corpuscular Hemoglobin 31 pg (27-31); Mean Corpuscular Volume 92 fL (80-94); Mean Platelet Volume 7.3 fL (7.4-10.4); Platelet Count 152 10^3/uL (150-450); Red Blood Count 2.54 10^6 /uL (4.18-5.48); Red Cell Distribution Width 13 % (10-15); White Blood Count 6.5 10^3/uL (3.5-10.8)
[2019-07-26 05:16] LABS: BUN/Creatinine Ratio 17.1 (8-20); Calcium 9.3 mg/dL (8.6-10.3); EGFR African American 60.3 (>60); EGFR Non-African American 49.8 (>60); Potassium 4.1 mmol/L (3.5-5.0)
[2019-07-26] MEDS: Acetaminophen TAB* 325 MG PO PRN ×3 (05:22→21:51)
[2019-07-26] MEDS: Scopolamine 1.5 mg* PATCH TRANSDERM SCH ×2 (07:42→16:59)
[2019-07-26] MEDS: CMCS:OMEGA-3 FATTY ACIDS (NF) 1,000 MG CAP PO SCH (08:55)
[2019-07-26] MEDS: Docusate CAP* 100 MG PO SCH ×3 (08:55→21:51)
[2019-07-26] MEDS: Tamsulosin CAP* 0.4 MG PO SCH (08:55)
[2019-07-26] MEDS: CMC:Glimepiride (NF) 2 MG TAB PO SCH (08:55)
[2019-07-26] MEDS: Apixaban* 2.5 MG TAB PO SCH ×2 (08:55→21:51)
[2019-07-26] MEDS: Insulin LISPRO* 1 UNITS UNIT SUBCUT SCH ×4 (08:56→21:52)
[2019-07-26] MEDS: Magnesium Hydroxide LIQ* 30 ML UDC PO PRN ×2 (08:57→21:52)
--- NOTE | 2019-07-26 09:32 | PN ---
Progress Note - Progress Note Date of Service: 07/26/19 SOAP: Subjective: []Pt seen at bedside. He feels well without complaint. Denies LLE pain. Denies CP, SOB, dizziness, nausea, and pain. Objective: [] Gen: NAD, feels well LLE: Dressing CDI, thigh soft, DF/PF intact, DP2+, sensation intact to light touch distally Calves supple and nontender without erythema, edema or palpable cords Assessment: []POD 2 S/P left total hip arthroplasty Plan: WBAT-PT/OT Posterior hip precautions Cont norco for pain, avoid percocet because it causes stomach upset Dressing change tomorrow and daily thereafter Eliquis for DVT prophylaxis Monitor Temp and HR, low grade tachy. Encouraged IS, fluid intake Vital Signs Temp 99.2 F 07/26/19 08:00 Pulse 101 07/26/19 08:00 Resp 18 07/26/19 08:00 BP 134/74 07/26/19 08:00 Pulse Ox 99 07/26/19 08:00 Intake & Output 07/25/19 07/26/19 07/26/19 18:59 06:59 18:59 Intake Total 1793 700 Output Total 1475 200 Balance 318 500 Intake: IV Fluids 1019 LR 1019 IVPB 54 ABX - CEFAZOLIN 54 Oral 720 700 Output: Urine 1475 200 Other: Estimated Void Medium # Voids 2 1 Laboratory Last Values WBC 6.5 10^3/uL (3.5-10.8) 07/26/19 04:49 RBC 2.54 10^6 /uL (4.18-5.48) L 07/26/19 04:49 Hgb 8.0 g/dL (14.0-18.0) L 07/26/19 04:49 Hct 24 % (42-52) L 07/26/19 04:49 MCV 92 fL (80-94) 07/26/19 04:49 MCH 31 pg (27-31) 07/26/19 04:49 MCHC 34 g/dL (31-36) 07/26/19 04:49 RDW 13 % (10-15) 07/26/19 04:49 Plt Count 152 10^3/uL (150-450) 07/26/19 04:49 MPV 7.3 fL (7.4-10.4) L 07/26/19 04:49 Neut % (Auto) 67.3 % 07/26/19 04:49 Lymph % (Auto) 16.5 % 07/26/19 04:49 [place] % (Auto) 15.1 % 07/26/19 04:49 Eos % (Auto) 0.5 % 07/26/19 04:49 Baso % (Auto) 0.6 % 07/26/19 04:49 Absolute Neuts (auto) 4.3 10^3/ul (1.5-7.7) 07/26/19 04:49 Absolute Lymphs (auto) 1.1 10^3/ul (1.0-4.8) 07/26/19 04:49 Absolute Monos (auto) 1.0 10^3/ul (0-0.8) H 07/26/19 04:49 Absolute Eos (auto) 0.0 10^3/ul (0-0.6) 07/26/19 04:49 Absolute Basos (auto) 0.0 10^3/ul (0-0.2) 07/26/19 04:49 Absolute Nucleated RBC 0.0 10^3/ul 07/26/19 04:49 Nucleated RBC % 0.0 07/26/19 04:49 INR (Anticoag Therapy) 0.96 (0.82-1.09) 07/22/19 15:10 APTT 31.7 seconds (26.0-38.0) 07/22/19 15:10 ABG pH 7.46 (7.35-7.45) H 07/24/19 22:40 ABG pCO2 33 mmHg (35-45) L 07/24/19 22:40 ABG pO2 74 mmHg (80-100) L 07/24/19 22:40 ABG HCO3 25.1 mmol/L (19-31) 07/24/19 22:40 ABG O2 Saturation 97.1 % (94.0-98.0) 07/24/19 22:40 ABG Base Excess 0.3 mmol/L (-2.0-2.0) 07/24/19 22:40 Sodium 136 mmol/L (135-145) 07/26/19 04:49 Potassium 4.1 mmol/L (3.5-5.0) 07/26/19 04:49 Chloride 103 mmol/L (101-111) 07/26/19 04:49 Carbon Dioxide 26 mmol/L (22-32) 07/26/19 04:49 Anion Gap 7 mmol/L (2-11) 07/26/19 04:49 BUN 24 mg/dL (6-24) 07/26/19 04:49 Creatinine 1.40 mg/dL (0.67-1.17) H 07/26/19 04:49 Est GFR ( Amer) 60.3 (>60) 07/26/19 04:49 Est GFR (Non-Af Amer) 49.8 (>60) 07/26/19 04:49 BUN/Creatinine Ratio 17.1 (8-20) 07/26/19 04:49 Glucose 192 mg/dL (70-100) H 07/26/19 04:49 POC Glucose (mg/dL) 244 mg/dL (70-100) H 07/26/19 07:42 Hemoglobin A1c 7.8 % (4.0-5.6) H 07/25/19 05:11 Calcium 9.3 mg/dL (8.6-10.3) 07/26/19 04:49 Total Bilirubin 0.70 mg/dL (0.2-1.0) 07/22/19 15:10 AST 15 U/L (13-39) 07/22/19 15:10 ALT 24 U/L (7-52) 07/22/19 15:10 Alkaline Phosphatase 63 U/L (34-104) 07/22/19 15:10 Troponin I 0.01 ng/mL (<0.03) 07/24/19 22:41 Total Protein 6.9 g/dL (6.4-8.9) 07/22/19 15:10 Albumin 4.2 g/dL (3.2-5.2) 07/22/19 15:10 Globulin 2.7 g/dL (2-4) 07/22/19 15:10 Albumin/Globulin Ratio 1.6 (1-3) 07/22/19 15:10
--- NOTE | 2019-07-26 10:17 | PN ---
Subjective Date of Service: 07/26/19 Interval History: Pt sitting up in chair, in NAD. States he is feeling okay but tired. States little pain at this time. Denies any headache, CP, SOB, abdominal discomfort. Has not had BM but is passing flatus, does not feel bloated. Denies any unusual numbness/tingling or swelling. Family History: Unchanged from Admission Social History: Unchanged from Admission Past Medical History: Unchanged from Admission Objective Active Medications: Acetaminophen (Tylenol Tab*) 650 mg PO Q4H PRN PRN Reason: MILD PAIN or TEMP > 100.4 Last Admin: 07/26/19 05:22 Dose: 650 mg Hydrocodone Bitart/Acetaminophen ([place] 5-325 Tab*) 1 tab PO Q4H PRN PRN Reason: PAIN - MODERATE Last Admin: 07/24/19 17:35 Dose: 1 tab Hydrocodone Bitart/Acetaminophen ([place] 5-325 Tab*) 2 tab PO Q4H PRN PRN Reason: PAIN - SEVERE Apixaban (Eliquis*) 2.5 mg PO BID [facility] Last Admin: 07/26/19 08:55 Dose: 2.5 mg Atorvastatin Calcium (Lipitor*) 40 mg PO 2100 [facility] Last Admin: 07/25/19 22:28 Dose: 40 mg Dextrose (D50w Syringe 50 Ml*) 12.5 gm IV PUSH .FOR FS < 60 - SS PRN PRN Reason: FS < 60 Docusate Sodium (Colace Cap*) 100 mg PO TID [facility] Last Admin: 07/26/19 08:55 Dose: 100 mg Fish Oil (Fish Oil (Nf)) 1,000 mg PO DAILY [facility]; Protocol Last Admin: 07/26/19 08:55 Dose: 1,000 mg Glimepiride (Glimepiride (Nf)) 1 mg PO BID [facility] Last Admin: 07/26/19 08:55 Dose: 1 mg Insulin Human Lispro (Humalog*) 0 units SUBCUT ACHS [facility]; Protocol Last Admin: 07/26/19 08:56 Dose: 4 units Magnesium Hydroxide (Milk Of Magnesia Liq*) 30 ml PO Q6H PRN PRN Reason: CONSTIPATION Last Admin: 07/26/19 08:57 Dose: 30 ml Melatonin (Melatonin) 3 mg PO BEDTIME PRN PRN Reason: SLEEP Last Admin: 07/23/19 02:32 Dose: 3 mg Ondansetron HCl (Zofran Inj*) 4 mg IV Q4H PRN PRN Reason: NAUSEA/VOMITING Last Admin: 07/23/19 11:45 Dose: 4 mg Scopolamine (Transderm-Scop 1.5 Mg Patch*) 1 patch TRANSDERM Q72H [facility] Last Admin: 07/26/19 07:42 Dose: 1 patch Tamsulosin HCl (Flomax Cap*) 0.4 mg PO DAILY [facility] Last Admin: 07/26/19 08:55 Dose: 0.4 mg Vital Signs - 8 hr 07/26/19 07/26/19 07/26/19 03:53 08:00 09:00 Temperature 99.7 F 99.2 F Pulse Rate 99 101 Respiratory 16 18 18 Rate Blood Pressure 148/65 134/74 (mmHg) O2 Sat by Pulse 100 99 Oximetry Oxygen Devices in Use Now: Nasal Cannula Appearance: sitting up in chair, in NAD Eyes: No Scleral Icterus, - - PERRL Neck: - - supple Respiratory: Symmetrical Chest Expansion and Respiratory Effort, Clear to Auscultation Cardiovascular: RRR - no murmurs, rubs or gallops Abdominal: - - BS throughout, abdomen mildly distended but soft and non-tender Extremities: - - trace non-pitting edema L thigh Skin: - - dressing CDI to L hip Neurological: Alert and Oriented x 3 - but can be difficult to get straight answers from, often leads into story telling Nutrition: Taking PO's Result Diagrams: 07/26/19 04:49 07/26/19 04:49 Assess/Plan/Problems-Billing Assessment: 73 yo male patient with hx significant for Diabetes, HTN, Right hip arthroplasty , and Left Knee replacement. Pt comes to hospital after mechanical fall while skiing and sustaining L hip Fx. - Patient Problems (1) Hip fracture, left Current Visit: Yes Status: Acute Code(s): S72.002A - FRACTURE OF UNSP PART OF NECK OF LEFT FEMUR, INIT SNOMED Code(s): 493649517 Comment: s/p L DALE 07/24, dressing CDI, adequate pain control -management per orthopedics - seeking PMRU services at d/c, not yet approved (2) Diabetes Current Visit: Yes Status: Acute Code(s): E11.9 - TYPE 2 DIABETES MELLITUS WITHOUT COMPLICATIONS SNOMED Code(s): 79067160 Comment: -Lispro SS -Glimepride dose increased to 2mg BID for better control -No plans to restart metformin in relation to kidney function (3) Acute kidney injury Current Visit: Yes Status: Acute Code(s): N17.9 - ACUTE KIDNEY FAILURE, UNSPECIFIED SNOMED Code(s): 14758244 Comment: Likely attributable to prior dehydration Cr 1.4, improving GFR 49.8 - encourage POs - continue to monitor (4) Anemia Current Visit: Yes Status: Acute Code(s): D64.9 - ANEMIA, UNSPECIFIED SNOMED Code(s): 406720982 Comment: HH 8.0/24. Has continued to trend downward since surgery on 07/24. Has also had continued mild tachycardia. Is otherwise asymptomatic. - 1L IVF bolus - Continue to trend (5) HTN (hypertension) Current Visit: Yes Status: Acute Code(s): I10 - ESSENTIAL (PRIMARY) HYPERTENSION SNOMED Code(s): 76865820 Comment: Adequate BP control - continue to hold lisinopril in light of this as well as resolving ANNA (6) Hyperlipidemia Current Visit: Yes Status: Acute Code(s): E78.5 - HYPERLIPIDEMIA, UNSPECIFIED SNOMED Code(s): 30615563 Comment: -Continue Lipitor 40mg (7) BPH (benign prostatic hyperplasia) Current Visit: Yes Status: Acute Code(s): N40.0 - BENIGN PROSTATIC HYPERPLASIA WITHOUT LOWER URINRY TRACT SYMP SNOMED Code(s): 602594764 Comment: -Continue Flomax 0.4mg (8) Full code status Current Visit: Yes Status: Acute Code(s): Z78.9 - OTHER SPECIFIED HEALTH STATUS SNOMED Code(s): 463986683 (9) DVT prophylaxis Current Visit: Yes Status: Acute Code(s): Z29.9 - ENCOUNTER FOR PROPHYLACTIC MEASURES, UNSPECIFIED SNOMED Code(s): 511554682 Comment: -will be managed per orthopedics -Eliquis Status and Disposition: status: stable disposition: surgical stay unit Attending: Alessandra Schultz
[2019-07-26] MEDS ORDERED: NS 0.9% 1000 ML** 1,000 ML IV ONE (13:22)
[2019-07-26] MEDS: Atorvastatin* 40 MG TAB PO SCH (21:51)
[2019-07-26] MEDS: CMCS: Glimepiride (NF) 2 MG TAB PO SCH (21:51)
[2019-07-27] MEDS: Ondansetron INJ* 2 MG/ML VIAL IV PRN (05:55)
[2019-07-27 06:01] LABS: ABS Basophils 0.1 10^3/ul (0-0.2); ABS Neutrophils 5.3 10^3/ul (1.5-7.7); Eosinophil % 0.6 %; Hematocrit 24 % (42-52); Hemoglobin 8.4 g/dL (14.0-18.0); Lymphocyte % 13.4 %; Mean Corpuscular HGB Conc 35 g/dL (31-36); Mean Corpuscular Hemoglobin 32 pg (27-31); Mean Corpuscular Volume 92 fL (80-94); Mean Platelet Volume 8.1 fL (7.4-10.4); Platelet Count 197 10^3/uL (150-450); Red Blood Count 2.59 10^6 /uL (4.18-5.48); Red Cell Distribution Width 13 % (10-15); White Blood Count 7.4 10^3/uL (3.5-10.8)
[2019-07-27 06:20] LABS: BUN/Creatinine Ratio 22.6 (8-20); Calcium 9.5 mg/dL (8.6-10.3); EGFR African American 61.8 (>60); EGFR Non-African American 51.1 (>60); Potassium 4.5 mmol/L (3.5-5.0)
[2019-07-27] MEDS: Insulin LISPRO* 1 UNITS UNIT SUBCUT SCH ×4 (08:42→21:21)
[2019-07-27] MEDS: Docusate CAP* 100 MG PO SCH (09:30)
[2019-07-27] MEDS: Tamsulosin CAP* 0.4 MG PO SCH (09:30)
[2019-07-27] MEDS: Apixaban* 2.5 MG TAB PO SCH ×2 (09:30→19:47)
[2019-07-27] MEDS: CMCS: Glimepiride (NF) 2 MG TAB PO SCH ×2 (09:31→20:03)
[2019-07-27] MEDS: CMCS:OMEGA-3 FATTY ACIDS (NF) 1,000 MG CAP PO SCH (09:31)
[2019-07-27] MEDS ORDERED: Senna TAB 8.6 mg* TAB PO PRN (10:11)
[2019-07-27] MEDS: metFORMIN* 500 MG TAB PO SCH ×2 (11:08→17:15)
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
--- NOTE | 2019-07-27 14:19 | PN ---
Subjective Date of Service: 07/27/19 Interval History: Patient is feeling well today. Patient has minimal pain in his leg. Patient denies F/C, N/V, CP, SOB, abdominal pain, constipation, dizziness, palpitations , or other pain. Family History: Unchanged from Admission Social History: Unchanged from Admission Past Medical History: Unchanged from Admission Objective Active Medications: Acetaminophen (Tylenol Tab*) 650 mg PO Q4H PRN PRN Reason: MILD PAIN or TEMP > 100.4 Last Admin: 07/26/19 21:51 Dose: 650 mg Hydrocodone Bitart/Acetaminophen ([place] 5-325 Tab*) 1 tab PO Q4H PRN PRN Reason: PAIN - MODERATE Last Admin: 07/24/19 17:35 Dose: 1 tab Hydrocodone Bitart/Acetaminophen ([place] 5-325 Tab*) 2 tab PO Q4H PRN PRN Reason: PAIN - SEVERE Apixaban (Eliquis*) 2.5 mg PO BID [facility] Last Admin: 07/27/19 09:30 Dose: 2.5 mg Atorvastatin Calcium (Lipitor*) 40 mg PO 2100 [facility] Last Admin: 07/26/19 21:51 Dose: 40 mg Dextrose (D50w Syringe 50 Ml*) 12.5 gm IV PUSH .FOR FS < 60 - SS PRN PRN Reason: FS < 60 Fish Oil (Fish Oil (Nf)) 1,000 mg PO DAILY [facility]; Protocol Last Admin: 07/27/19 09:31 Dose: 1,000 mg Glimepiride (Glimepiride (Nf)) 2 mg PO BID [facility] Last Admin: 07/27/19 09:31 Dose: 2 mg Insulin Human Lispro (Humalog*) 0 units SUBCUT ACHS [facility]; Protocol Last Admin: 07/27/19 13:28 Dose: 6 units Lisinopril (Prinivil Tab*) 5 mg PO DAILY [facility] Magnesium Hydroxide (Milk Of Magnesia Liq*) 30 ml PO Q6H PRN PRN Reason: CONSTIPATION Last Admin: 07/26/19 21:52 Dose: 30 ml Melatonin (Melatonin) 3 mg PO BEDTIME PRN PRN Reason: SLEEP Last Admin: 07/23/19 02:32 Dose: 3 mg Metformin HCl (Glucophage*) 500 mg PO 0800,1700 [facility] Last Admin: 07/27/19 11:08 Dose: 500 mg Ondansetron HCl (Zofran Inj*) 4 mg IV Q4H PRN PRN Reason: NAUSEA/VOMITING Last Admin: 07/27/19 05:55 Dose: 4 mg Scopolamine (Transderm-Scop 1.5 Mg Patch*) 1 patch TRANSDERM Q72H [facility] Last Admin: 07/26/19 16:59 Dose: Not Given Senna ([place] 8.6 Mg Tab*) 1 tab PO DAILY PRN PRN Reason: CONSTIPATION Tamsulosin HCl (Flomax Cap*) 0.4 mg PO DAILY [facility] Last Admin: 07/27/19 09:30 Dose: 0.4 mg Vital Signs - 8 hr 07/27/19 07/27/19 07/27/19 07:00 08:00 11:00 Temperature 98.1 F 98.1 F Pulse Rate 90 101 Respiratory 14 18 16 Rate Blood Pressure 154/69 105/86 (mmHg) O2 Sat by Pulse 93 95 Oximetry Oxygen Devices in Use Now: Nasal Cannula Appearance: Patient is a 74yo male who appears stated age and is sitting in the bed in [facility]. Eyes: No Scleral Icterus, PERRLA Ears/Nose/Mouth/Throat: NL Teeth, Lips, Gums, Clear Oropharnyx, Mucous Membranes Moist Neck: NL Appearance and Movements; NL JVP, Trachea Midline Respiratory: Symmetrical Chest Expansion and Respiratory Effort, Clear to Auscultation Cardiovascular: NL Sounds; No Murmurs; No JVD, RRR, - - Trace B/L LE edema. Abdominal: NL Sounds; No Tenderness; No Distention, No Hepatosplenomegaly Lymphatic: No Cervical Adenopathy Extremities: No Clubbing, Cyanosis Skin: No Nodules or Sclerosis, - - Left hip surgical incision unremarkable. Neurological: Alert and Oriented x 3, NL Sensation, NL Muscle Strength and Tone , - - CN II-XII intact. Result Diagrams: 07/27/19 05:55 07/27/19 05:55 Assess/Plan/Problems-Billing Assessment: 73 yo male patient with hx significant for Diabetes, HTN, Right hip arthroplasty , and Left Knee replacement. Pt comes to hospital after mechanical fall while skiing and sustaining L hip Fx. - Patient Problems (1) Hip fracture, left Current Visit: Yes Status: Acute Code(s): S72.002A - FRACTURE OF UNSP PART OF NECK OF LEFT FEMUR, INIT SNOMED Code(s): 886256020 Comment: - S/P LTHA 07/24, dressing CDI, adequate pain control - management per orthopedics - seeking PMRU services at d/c, not yet approved - PT/OT, bowel regimen (2) Acute kidney injury Current Visit: Yes Status: Acute Code(s): N17.9 - ACUTE KIDNEY FAILURE, UNSPECIFIED SNOMED Code(s): 00765495 Comment: - Unclear baseline, Cret 1.37 - Continue to monitor, this may be patient's baseline, appears euvolemic (3) Anemia Current Visit: Yes Status: Acute Code(s): D64.9 - ANEMIA, UNSPECIFIED SNOMED Code(s): 036255596 Comment: - Due to acute blood loss - No indication for transfusion at this time - Stable. (4) BPH (benign prostatic hyperplasia) Current Visit: Yes Status: Acute Code(s): N40.0 - BENIGN PROSTATIC HYPERPLASIA WITHOUT LOWER URINRY TRACT SYMP SNOMED Code(s): 618365040 Comment: -Continue Flomax 0.4mg (5) Diabetes Current Visit: Yes Status: Acute Code(s): E11.9 - TYPE 2 DIABETES MELLITUS WITHOUT COMPLICATIONS SNOMED Code(s): 20276830 Comment: - Poor Control - Lispro SS - Glimepride dose increased to 2mg BID for better control - Restart Metformin at decreased dose, monitor renal function - Patient would strongly prefer no insulin for BG control at D/C - Consider addition of other oral antihyperglycemics. (6) HTN (hypertension) Current Visit: Yes Status: Acute Code(s): I10 - ESSENTIAL (PRIMARY) HYPERTENSION SNOMED Code(s): 70597518 Comment: - BP occasionally high - Resume Lisinopril and monitor Cret. (7) Hyperlipidemia Current Visit: Yes Status: Acute Code(s): E78.5 - HYPERLIPIDEMIA, UNSPECIFIED SNOMED Code(s): 70476101 Comment: -Continue Lipitor 40mg (8) Nausea & vomiting Current Visit: Yes Status: Acute Code(s): R11.2 - NAUSEA WITH VOMITING, UNSPECIFIED SNOMED Code(s): 58665804 Comment: - Brief N/V today, then resolved - Continue anti-emetics, likely due to pain medication. (9) DVT prophylaxis Current Visit: Yes Status: Acute Code(s): Z29.9 - ENCOUNTER FOR PROPHYLACTIC MEASURES, UNSPECIFIED SNOMED Code(s): 348326847 Comment: -Eliquis 2.5mg BID for 30 days. (10) Full code status Current Visit: Yes Status: Acute Code(s): Z78.9 - OTHER SPECIFIED HEALTH STATUS SNOMED Code(s): 895221134 Status and Disposition: status: stable disposition: surgical stay unit
[2019-07-27] MEDS: Acetaminophen TAB* 325 MG PO PRN (19:47)
[2019-07-27] MEDS: Atorvastatin* 40 MG TAB PO SCH (19:47)
[2019-07-27 20:15] LABS: Urine Appearance Clear; Urine Bilirubin Negative (Negative); Urine Blood 1+ (Negative); Urine Color Yellow; Urine Glucose 3+(>=500 mg/dL) (Negative); Urine Ketones Negative (Negative); Urine Nitrite Negative (Negative); Urine Protein Negative (Negative); Urine Specific Gravity 1.022 (1.010-1.030); Urine Urobilinogen Negative (Negative)
[2019-07-27 20:20] LABS: Urine Bacteria Absent (Absent); Urine Red Blood Cell Trace(0-2/hpf) (Absent); Urine White Blood Cell Absent (Absent)
[2019-07-28] MEDS: Ondansetron INJ* 2 MG/ML VIAL IV PRN (01:10)
[2019-07-28] MEDS: metFORMIN* 500 MG TAB PO SCH ×2 (08:57→18:04)
[2019-07-28] MEDS: CMCS: Glimepiride (NF) 2 MG TAB PO SCH ×2 (08:57→21:03)
[2019-07-28] MEDS: Lisinopril TAB* 5 MG PO SCH (08:57)
[2019-07-28] MEDS: Tamsulosin CAP* 0.4 MG PO SCH (08:57)
[2019-07-28] MEDS: CMCS:OMEGA-3 FATTY ACIDS (NF) 1,000 MG CAP PO SCH (08:57)
[2019-07-28] MEDS: Apixaban* 2.5 MG TAB PO SCH ×2 (08:57→21:03)
[2019-07-28] MEDS: Insulin LISPRO* 1 UNITS UNIT SUBCUT SCH ×6 (08:59→21:03)
--- NOTE | 2019-07-28 10:24 | PN ---
Subjective Date of Service: 07/28/19 Interval History: Patient again had an episode overnight of nausea and vomiting undigested food. Patient states he felt better after this. Patient is having BMs, but hadn't for a couple days before yesterday. Patient denies ongoing nausea, F/C, CP, SOB, dizziness, pain, or other pain. Family History: Unchanged from Admission Social History: Unchanged from Admission Past Medical History: Unchanged from Admission Objective Active Medications: Acetaminophen (Tylenol Tab*) 650 mg PO Q4H PRN PRN Reason: MILD PAIN or TEMP > 100.4 Last Admin: 07/27/19 19:47 Dose: 650 mg Hydrocodone Bitart/Acetaminophen ([place] 5-325 Tab*) 1 tab PO Q4H PRN PRN Reason: PAIN - MODERATE Last Admin: 07/24/19 17:35 Dose: 1 tab Hydrocodone Bitart/Acetaminophen ([place] 5-325 Tab*) 2 tab PO Q4H PRN PRN Reason: PAIN - SEVERE Apixaban (Eliquis*) 2.5 mg PO BID [facility] Last Admin: 07/28/19 08:57 Dose: 2.5 mg Atorvastatin Calcium (Lipitor*) 40 mg PO 2100 [facility] Last Admin: 07/27/19 19:47 Dose: 40 mg Dextrose (D50w Syringe 50 Ml*) 12.5 gm IV PUSH .FOR FS < 60 - SS PRN PRN Reason: FS < 60 Fish Oil (Fish Oil (Nf)) 1,000 mg PO DAILY [facility]; Protocol Last Admin: 07/28/19 08:57 Dose: 1,000 mg Glimepiride (Glimepiride (Nf)) 2 mg PO BID [facility] Last Admin: 07/28/19 08:57 Dose: 2 mg Insulin Glargine (Lantus(*)) 15 units SUBCUT Q24H [facility] Insulin Human Lispro (Humalog*) 0 units SUBCUT ACHS [facility]; Protocol Last Admin: 07/28/19 08:59 Dose: 8 units Insulin Human Lispro (Humalog*) 5 units SUBCUT AC [facility] Lisinopril (Prinivil Tab*) 5 mg PO DAILY [facility] Last Admin: 07/28/19 08:57 Dose: 5 mg Magnesium Hydroxide (Milk Of Magnesia Liq*) 30 ml PO Q6H PRN PRN Reason: CONSTIPATION Last Admin: 07/26/19 21:52 Dose: 30 ml Melatonin (Melatonin) 3 mg PO BEDTIME PRN PRN Reason: SLEEP Last Admin: 07/23/19 02:32 Dose: 3 mg Metformin HCl (Glucophage*) 500 mg PO 0800,1700 [facility] Last Admin: 07/28/19 08:57 Dose: 500 mg Ondansetron HCl (Zofran Inj*) 4 mg IV Q4H PRN PRN Reason: NAUSEA/VOMITING Last Admin: 07/28/19 01:10 Dose: 4 mg Senna (Senokot 8.6 Mg Tab*) 1 tab PO DAILY PRN PRN Reason: CONSTIPATION Tamsulosin HCl (Flomax Cap*) 0.4 mg PO DAILY [facility] Last Admin: 07/28/19 08:57 Dose: 0.4 mg Vital Signs - 8 hr 07/28/19 07/28/19 07/28/19 04:17 08:00 08:12 Temperature 98 F 98.2 F Pulse Rate 94 71 Respiratory 16 18 12 Rate Blood Pressure 151/72 140/71 (mmHg) O2 Sat by Pulse 98 98 Oximetry Oxygen Devices in Use Now: Nasal Cannula Appearance: Patient is a 74yo male who appears stated age and is sitting in the bed in [facility]. Eyes: No Scleral Icterus, PERRLA Ears/Nose/Mouth/Throat: NL Teeth, Lips, Gums, Clear Oropharnyx, Mucous Membranes Moist Neck: NL Appearance and Movements; NL JVP, Trachea Midline Respiratory: Symmetrical Chest Expansion and Respiratory Effort, Clear to Auscultation Cardiovascular: NL Sounds; No Murmurs; No JVD, RRR, No Edema Abdominal: NL Sounds; No Tenderness; No Distention, No Hepatosplenomegaly Lymphatic: No Cervical Adenopathy Extremities: No Edema, No Clubbing, Cyanosis Skin: No Nodules or Sclerosis, - - Left Hip Incision unremarkable. Neurological: Alert and Oriented x 3, NL Sensation, NL Muscle Strength and Tone , - Result Diagrams: 07/27/19 05:55 07/27/19 05:55 Assess/Plan/Problems-Billing Assessment: 73 yo male patient with hx significant for Diabetes, HTN, Right hip arthroplasty , and Left Knee replacement. Pt comes to hospital after mechanical fall while skiing and sustaining L hip Fx. - Patient Problems (1) Hip fracture, left Current Visit: Yes Status: Acute Code(s): S72.002A - FRACTURE OF UNSP PART OF NECK OF LEFT FEMUR, INIT SNOMED Code(s): 234567274 Comment: - S/P LTHA 07/24, dressing CDI, adequate pain control - Management per orthopedics - Seeking PMRU services at d/c, not yet approved - PT/OT, bowel regimen - Avoid Opiates as much as possible for constipation and nausea. (2) Acute kidney injury Current Visit: Yes Status: Acute Code(s): N17.9 - ACUTE KIDNEY FAILURE, UNSPECIFIED SNOMED Code(s): 34237143 Comment: - Unclear baseline, Cret 1.37 - Continue to monitor, this may be patient's baseline, appears euvolemic (3) Anemia Current Visit: Yes Status: Acute Code(s): D64.9 - ANEMIA, UNSPECIFIED SNOMED Code(s): 159137681 Comment: - Due to acute blood loss - No indication for transfusion at this time - Stable. (4) BPH (benign prostatic hyperplasia) Current Visit: Yes Status: Acute Code(s): N40.0 - BENIGN PROSTATIC HYPERPLASIA WITHOUT LOWER URINRY TRACT SYMP SNOMED Code(s): 318038634 Comment: -Continue Flomax 0.4mg (5) Diabetes Current Visit: Yes Status: Acute Code(s): E11.9 - TYPE 2 DIABETES MELLITUS WITHOUT COMPLICATIONS SNOMED Code(s): 14278836 Comment: - Poor Control - Lispro SS - Glimepride dose increased to 2mg BID for better control - Restart Metformin at decreased dose, monitor renal function - Patient would strongly prefer no insulin for BG control at D/C - Add on basal insulin and scheduled mealtime insulin. (6) HTN (hypertension) Current Visit: Yes Status: Acute Code(s): I10 - ESSENTIAL (PRIMARY) HYPERTENSION SNOMED Code(s): 08593515 Comment: - BP occasionally high - Resume Lisinopril and monitor Cret. (7) Hyperlipidemia Current Visit: Yes Status: Acute Code(s): E78.5 - HYPERLIPIDEMIA, UNSPECIFIED SNOMED Code(s): 91051019 Comment: -Continue Lipitor 40mg (8) Nausea & vomiting Current Visit: Yes Status: Acute Code(s): R11.2 - NAUSEA WITH VOMITING, UNSPECIFIED SNOMED Code(s): 04209382 Comment: - Brief N/V again today, then resolved - Continue anti-emetics - Avoid Opiates - Unclear cause, likely post-operative complication. (9) DVT prophylaxis Current Visit: Yes Status: Acute Code(s): Z29.9 - ENCOUNTER FOR PROPHYLACTIC MEASURES, UNSPECIFIED SNOMED Code(s): 522019599 Comment: -Eliquis 2.5mg BID for 30 days. Started 07/25 (10) Full code status Current Visit: Yes Status: Acute Code(s): Z78.9 - OTHER SPECIFIED HEALTH STATUS SNOMED Code(s): 872649095 Status and Disposition: status: stable disposition: surgical stay unit, hopeful D/C soon to PMRU vs other rehab.
[2019-07-28 10:45] LABS: BUN/Creatinine Ratio 21.9 (8-20); Calcium 9.9 mg/dL (8.6-10.3); EGFR African American 61.8 (>60); EGFR Non-African American 51.1 (>60); Potassium 4.4 mmol/L (3.5-5.0)
[2019-07-28] MEDS: Insulin GLARGINE(*) 1 UNITS UNIT SUBCUT SCH (13:04)
--- NOTE | 2019-07-28 16:23 | PN ---
Progress Note - Progress Note Date of Service: 07/28/19 SOAP: Subjective: []Pt seen at bedside, no concerns today. Hip pain well controlled Objective: []Gen: NAD, appears well LLE: Dressing changed, incision is CDI 1 drop of serous dc from distal 1/3 if incision, no erythema surrounding. thigh soft, DF/PF intact, DP2+, sensation intact to light touch distally Calves supple and nontender without erythema, edema or palpable cords Assessment: []POD 4 S/P left total hip arthroplasty Plan: wbat posterior hip precautions
[2019-07-28] MEDS: Acetaminophen TAB* 325 MG PO PRN (19:33)
[2019-07-28] MEDS: Atorvastatin* 40 MG TAB PO SCH (21:03)
--- NOTE | 2019-07-28 21:34 | DS ---
CC: Dr. Matt Arias; Dr. Hai Lyle * DISCHARGE SUMMARY: DATE OF ADMISSION: 07/22/19 DATE OF DISCHARGE: Unknown. PRIMARY CARE PROVIDER: Dr. Matt Arias. MY ATTENDING WHILE IN THE HOSPITAL: Dr. Davonte Negron.* (DICTATED BY SHAINA MILAN) CONSULTING ORTHOPEDIST: Dr. Hai Lyle. PRIMARY DISCHARGE DIAGNOSES: 1. Left total hip replacement due to left femoral neck fracture due to mechanical fall. 2. Postoperative tachycardia, improving. 3. Postoperative nausea and vomiting, improving. 4. Hypoxia, improving. 5. Anemia, stable. 6. Acute kidney injury, resolved. SECONDARY DISCHARGE DIAGNOSES: 1. Diabetes mellitus, type 2. 2. Chronic kidney disease. 3. Hypertension. 4. Hyperlipidemia. 5. History of diverticulitis. 6. Fibromyalgia. STUDIES DONE WHILE IN THE HOSPITAL: Hip and pelvis x-ray from 07/22/19, read as femoral neck fracture, overriding of the fracture fragments. Chest x-ray from 07/22/19, read as no active cardiopulmonary disease. Hip x-ray from 07/24/19, read as status post bilateral hip arthroplasty. Thoracic CTA from 07/24/19, read as no pulmonary emboli, no additional findings to correlate the patient's symptomatology and inferior lingular pulmonary nodule based on Fleischner criteria is low risk and no followup indicated. MEDICATIONS AT DISCHARGE: 1. Tylenol 650 mg p.o. q.4 hours as needed. 2. [place] 5/325 one tab p.o. q.4 hours as needed. 3. Eliquis 2.5 mg p.o. b.i.d. for 30 total days until 08/23/19. 4. Lipitor 40 mg p.o. daily. 5. Fish oil 1000 mg p.o. daily. 6. Glimepiride 2 mg p.o. b.i.d. scheduled. 7. Insulin glargine 50 units subcutaneous q.24 hours as needed. 8. Insulin lispro 25 units subcutaneous with meals. 9. Insulin lispro sliding scale. 10. Lisinopril 5 mg p.o. daily. 11. Magnesium hydroxide 30 mL p.o. q.6 hours as needed for constipation. 12. Melatonin 3 mg p.o. at bedtime as needed for sleep. 13. Metformin 500 mg p.o. b.i.d. 14. Senna 1 tab p.o. daily as needed. 15. Tamsulosin 0.4 mg p.o. daily. 16. Zofran 4 mg ODT as needed. 17. Loratadine 10 mg p.o. daily. 18. Methocarbamol 500 mg p.o. t.i.d. as needed. 19. Naproxen 220 mg p.o. daily as needed. 20. Trazodone 50 mg p.o. at bedtime as needed. 21. Valacyclovir 1 mg p.o. daily as needed. HOSPITAL COURSE: This is a brief summary of the patient's presentation. For more details, please see history and physical from Martinez Sinclair NP on 07/22/19. In brief, the patient is a 74-year-old male with past medical history significant for the above, who was in his normal state of health until on , he was out skiing and fell on his left hip on the ice with sudden severe pain without striking his head or loss of consciousness. The patient was brought into the hospital by ambulance. The patient was seen in consultation by Dr. Adriana Santizo, who recommended a total hip arthroplasty, which was performed on 07/24/19. The patient was mildly anemic on presentation, which got worse after surgery. The patient's creatinine is elevated from his previous known baseline, but this was over 2 years old and may not represent a true baseline. The patient had no other signs of infection or other concerns. The patient tolerated the surgery well, however, postoperatively became tachycardic , hypoxic and had a chest CTA as above, which showed no reason for this including pulmonary embolism and the patient's oxygen was able to be weaned. The patient had significant issues with blood glucose control postoperatively. The patient's metformin was held for his ANNA and contrast use, but then was resumed at a decreased rate due to his kidney disease. The patient's glimepiride was also initially held, but then resumed. Neither of these were successful in adequately controlling his blood sugars. So, as above, insulin glargine and scheduled mealtime insulin were added on. The patient expressed a strong interest in maintaining only oral medications if possible; however, this was explained to him that this was not possible. The patient's tachycardia improved with time. The patient had episodes with episodes overnight several days during the latter part of his hospitalization where he would vomit undigested food. This was attributed to slow intestinal transit related to surgery and pain medications, though the patient's opiate pain medication was not being used avidly. The patient had no other previous history of this and seemed to be improving. The patient was accepted to [facility] and is currently awaiting insurance authorization. DISCHARGE PLAN BY PROBLEM: 1. Left total hip arthroplasty related to left femoral neck fracture. The patient appears to be doing well with physical therapy, but he is in need of rehab, so it will likely be performed at [facility] or at different rehab facility. The patient's pain has been well controlled. Continue the patient's oxycodone, Robaxin and Tylenol as well as Naproxen. The patient was persistently hypoxic and tachycardic after surgery. Those two are improving. The patient had no PE. Continue the patient's bowel regimen. The patient should follow up with Orthopedics in 2 weeks for wound check and removal of vance. 2. Diabetes mellitus, type 2. The patient's blood sugars have been uncontrolled. The patient was just started on insulin glargine, scheduled mealtime insulin as well as insulin sliding scale, metformin and glipizide. The patient's blood sugars are likely elevated in the setting of strain from surgery. As the patient gets far away from surgery, the patient will be monitored for hypoglycemia and his insulin should be preferentially taken away over oral antihyperglycemic medications. 3. Nausea and vomiting of unclear cause. Continue outpatient Zofran ODT. 4. Hypertension. The patient is currently normotensive. Continue the patient' s lisinopril. 5. Acute kidney injury. I suspect the patient is back down to his baseline creatinine around 1.37, as the patient appears euvolemic and his creatinine has been in normal state of health. 6. BPH. Continue Flomax. 7. DVT prophylaxis: Eliquis for 30 total days until 08/22/19. 8. Hypercholesterolemia. Continue the patient's Lipitor and fish oil. 9. Disposition: Unknown. 10. The patient is stable. SHAINA MILAN [id number]/[facility] #: [id number] [facility]. [facility]IAL HOSPITALRomina
[2019-07-29] MEDS: Acetaminophen TAB* 325 MG PO PRN (02:16)
[2019-07-29] MEDS: Melatonin 3 MG TAB PO PRN (02:17)
[2019-07-29] MEDS: metFORMIN* 500 MG TAB PO SCH ×2 (08:33→18:00)
[2019-07-29] MEDS: CMCS: Glimepiride (NF) 2 MG TAB PO SCH ×2 (08:33→20:49)
[2019-07-29] MEDS: HYDROcodone/ACETAMIN 5-325 MG* 1 TAB PO PRN (08:34)
[2019-07-29] MEDS: CMCS:OMEGA-3 FATTY ACIDS (NF) 1,000 MG CAP PO SCH (08:34)
[2019-07-29] MEDS: Apixaban* 2.5 MG TAB PO SCH ×2 (08:34→20:49)
[2019-07-29] MEDS: Tamsulosin CAP* 0.4 MG PO SCH (08:34)
[2019-07-29] MEDS: Lisinopril TAB* 5 MG PO SCH (08:34)
[2019-07-29] MEDS: Insulin LISPRO* 1 UNITS UNIT SUBCUT SCH ×7 (09:22→20:49)
[2019-07-29] MEDS: Insulin GLARGINE(*) 1 UNITS UNIT SUBCUT SCH (09:22)
--- NOTE | 2019-07-29 16:02 | PN ---
Subjective Date of Service: 07/29/19 Interval History: Sitting in chair on assessment with family at bedside. Reports pain is well controlled. Denies episode of nausea or vomiting last evening. Reports he is having regular BMs and last BM was today. Reports he is voiding without difficulty. Denies cp, sob, palpitations, fever, chills, nausea, vomiting. Family History: Unchanged from Admission Social History: Unchanged from Admission Past Medical History: Unchanged from Admission Objective Active Medications: Acetaminophen (Tylenol Tab*) 650 mg PO Q4H PRN PRN Reason: MILD PAIN or TEMP > 100.4 Last Admin: 07/29/19 02:16 Dose: 650 mg Hydrocodone Bitart/Acetaminophen ([place] 5-325 Tab*) 1 tab PO Q4H PRN PRN Reason: PAIN - MODERATE Last Admin: 07/29/19 08:34 Dose: 1 tab Hydrocodone Bitart/Acetaminophen ([place] 5-325 Tab*) 2 tab PO Q4H PRN PRN Reason: PAIN - SEVERE Apixaban (Eliquis*) 2.[address] [facility] Last Admin: 07/29/19 08:34 Dose: 2.5 mg Atorvastatin Calcium (Lipitor*) [address] [facility] Last Admin: 07/28/19 21:03 Dose: 40 mg Dextrose (D50w Syringe 50 Ml*) 12.5 gm IV PUSH .FOR FS < 60 - SS PRN PRN Reason: FS < 60 Fish Oil (Fish Oil (Nf)) 1,[address] [facility]; Protocol Last Admin: 07/29/19 08:34 Dose: 1,000 mg Glimepiride (Glimepiride (Nf)) [address] [facility] Last Admin: 07/29/19 08:33 Dose: 2 mg Insulin Glargine (Lantus(*)) [address] [facility] Last Admin: 07/29/19 09:22 Dose: 15 units Insulin Human Lispro (Humalog*) [address] [facility]; Protocol Last Admin: 07/29/19 12:59 Dose: 4 units Insulin Human Lispro (Humalog*) [address] [facility] Last Admin: 07/29/19 12:59 Dose: 5 units Lisinopril (Prinivil Tab*) [address] [facility] Last Admin: 07/29/19 08:34 Dose: 5 mg Magnesium Hydroxide (Milk Of Magnesia Liq*) 30 ml PO Q6H PRN PRN Reason: CONSTIPATION Last Admin: 07/26/19 21:52 Dose: 30 ml Melatonin (Melatonin) 3 mg PO BEDTIME PRN PRN Reason: SLEEP Last Admin: 07/29/19 02:17 Dose: 3 mg Metformin HCl (Glucophage*) 500 mg PO 0800,1700 [facility] Last Admin: 07/29/19 08:33 Dose: 500 mg Ondansetron HCl (Zofran Inj*) 4 mg IV Q4H PRN PRN Reason: NAUSEA/VOMITING Last Admin: 07/28/19 01:10 Dose: 4 mg Senna (Senokot 8.6 Mg Tab*) 1 tab PO DAILY PRN PRN Reason: CONSTIPATION Tamsulosin HCl (Flomax Cap*) 0.[address] [facility] Last Admin: 07/29/19 08:34 Dose: 0.4 mg Vital Signs - 8 hr 07/29/19 07/29/19 07/29/19 08:00 08:04 08:34 Temperature 97.4 F Pulse Rate 88 Respiratory 18 16 18 Rate Blood Pressure 134/63 (mmHg) O2 Sat by Pulse 98 98 Oximetry 07/29/19 07/29/19 10:21 11:41 Temperature 97.5 F Pulse Rate 89 Respiratory 18 16 Rate Blood Pressure 137/65 (mmHg) O2 Sat by Pulse 96 Oximetry Oxygen Devices in Use Now: None Appearance: Comfortable, NAD Eyes: No Scleral Icterus Ears/Nose/Mouth/Throat: Clear Oropharnyx, Mucous Membranes Moist Neck: NL Appearance and Movements; NL JVP Respiratory: Symmetrical Chest Expansion and Respiratory Effort, Clear to Auscultation Cardiovascular: NL Sounds; No Murmurs; No JVD, RRR, No Edema Abdominal: NL Sounds; No Tenderness; No Distention Lymphatic: No Cervical Adenopathy Extremities: No Edema Skin: No Rash or Ulcers Neurological: Alert and Oriented x 3 Nutrition: Taking PO's Result Diagrams: 07/27/19 05:55 07/28/19 10:14 Additional Lab and Data: Laboratory Results - last 24 hr 07/28/19 07/28/19 07/29/19 17:10 20:56 08:28 POC Glucose (mg/dL) 216 H 242 H 162 H 07/29/19 11:43 POC Glucose (mg/dL) 239 H Microbiology and Other Data: . Assess/Plan/Problems-Billing Assessment: 73 yo male patient with hx significant for Diabetes, HTN, Right hip arthroplasty , and Left Knee replacement. Pt comes to hospital after mechanical fall while skiing and sustaining L hip Fx. - Patient Problems (1) Hip fracture, left Comment: - S/P LTHA 07/24, dressing CDI, adequate pain control - Management per orthopedics - Seeking PMRU services at d/c, not yet approved - PT/OT, bowel regimen - Avoid Opiates as much as possible for constipation and nausea. (2) Acute kidney injury Comment: - Unclear baseline at last creatinine before this visit was 06/2017 and was 1.06. - Recent Cret 1.37 - Continue to monitor, this may be patient's baseline, appears euvolemic (3) Anemia Comment: - H&H stable - Due to acute blood loss - No indication for transfusion at this time (4) BPH (benign prostatic hyperplasia) Comment: - Denies urinary symptoms - Continue Flomax 0.4mg (5) Diabetes Comment: - Poor Control - Lispro SS - Glimepride dose increased to 2mg BID for better control - Restart Metformin at decreased dose, monitor renal function - Patient would strongly prefer no insulin for BG control at D/C - Add on basal insulin and scheduled mealtime insulin. (6) HTN (hypertension) Current Visit: Yes Status: Acute Code(s): I10 - ESSENTIAL (PRIMARY) HYPERTENSION SNOMED Code(s): 61403975 Comment: - BP occasionally high - Resume Lisinopril and monitor Cret. (7) Hyperlipidemia Comment: - Continue Lipitor 40mg (8) Nausea & vomiting Comment: - Denies any episodes of N/V in last 24 hrs. - Had bried N/V episodes previously on this admission - Continue anti-emetics - Avoid Opiates - Unclear cause, likely post-operative complication. (9) DVT prophylaxis Comment: -Eliquis 2.5mg BID for 30 days. Started 07/25 (10) Full code status Status and Disposition: status: stable disposition: surgical stay unit, hopeful D/C soon to PMRU vs other rehab. Attending: Arash Fuentes
[2019-07-29] MEDS: Atorvastatin* 40 MG TAB PO SCH (20:49)
[2019-07-30 05:04] LABS: ABS Basophils 0.1 10^3/ul (0-0.2); ABS Eosinophils 0.1 10^3/ul (0-0.6); ABS Lymphocytes 1.3 10^3/ul (1.0-4.8); ABS Monocytes 0.8 10^3/ul (0-0.8); ABS Neutrophils 4.1 10^3/ul (1.5-7.7); Eosinophil % 1.9 %; Hematocrit 23 % (42-52); Hemoglobin 7.8 g/dL (14.0-18.0); Lymphocyte % 20.9 %; Mean Corpuscular HGB Conc 34 g/dL (31-36); Mean Corpuscular Hemoglobin 32 pg (27-31); Mean Corpuscular Volume 93 fL (80-94); Mean Platelet Volume 7.1 fL (7.4-10.4); Nucleated Red Blood Cells % 0.1; Platelet Count 266 10^3/uL (150-450); Red Blood Count 2.47 10^6 /uL (4.18-5.48); Red Cell Distribution Width 13 % (10-15); White Blood Count 6.4 10^3/uL (3.5-10.8)
[2019-07-30 05:20] LABS: BUN/Creatinine Ratio 17.7 (8-20); Calcium 9.2 mg/dL (8.6-10.3); EGFR African American 69.3 (>60); EGFR Non-African American 57.3 (>60); Potassium 3.9 mmol/L (3.5-5.0)
[2019-07-30] MEDS: metFORMIN* 500 MG TAB PO SCH ×2 (09:16→17:53)
[2019-07-30] MEDS: CMCS: Glimepiride (NF) 2 MG TAB PO SCH ×2 (09:16→21:13)
[2019-07-30] MEDS: Tamsulosin CAP* 0.4 MG PO SCH (09:17)
[2019-07-30] MEDS: Insulin LISPRO* 1 UNITS UNIT SUBCUT SCH ×7 (09:18→21:15)
[2019-07-30] MEDS: Apixaban* 2.5 MG TAB PO SCH ×2 (09:18→21:13)
[2019-07-30] MEDS: CMCS:OMEGA-3 FATTY ACIDS (NF) 1,000 MG CAP PO SCH (09:18)
[2019-07-30] MEDS: Lisinopril TAB* 5 MG PO SCH (09:47)
[2019-07-30] MEDS: Insulin GLARGINE(*) 1 UNITS UNIT SUBCUT SCH (09:47)
--- NOTE | 2019-07-30 10:52 | PN ---
Progress Note - Progress Note Date of Service: 07/30/19 SOAP: Subjective: Pt seen and examined sitting in chair. Complains of pain only when walking. Denies CP, SOB, F/C. Vital Signs: Temp Pulse Resp BP Pulse Ox 98.7 F 96 16 130/84 98 07/30/19 08:00 07/30/19 08:00 07/30/19 08:00 07/30/19 08:00 07/30/19 08:00 Laboratory Last Values WBC 6.4 10^3/uL (3.5-10.8) 07/30/19 04:38 RBC 2.47 10^6 /uL (4.18-5.48) L 07/30/19 04:38 Hgb 7.8 g/dL (14.0-18.0) L 07/30/19 04:38 Hct 23 % (42-52) L 07/30/19 04:38 MCV 93 fL (80-94) 07/30/19 04:38 MCH 32 pg (27-31) H 07/30/19 04:38 MCHC 34 g/dL (31-36) 07/30/19 04:38 RDW 13 % (10-15) 07/30/19 04:38 Plt Count 266 10^3/uL (150-450) 07/30/19 04:38 MPV 7.1 fL (7.4-10.4) L 07/30/19 04:38 Neut % (Auto) 63.5 % 07/30/19 04:38 Lymph % (Auto) 20.9 % 07/30/19 04:38 [place] % (Auto) 12.4 % 07/30/19 04:38 Eos % (Auto) 1.9 % 07/30/19 04:38 Baso % (Auto) 1.3 % 07/30/19 04:38 Absolute Neuts (auto) 4.1 10^3/ul (1.5-7.7) 07/30/19 04:38 Absolute Lymphs (auto) 1.3 10^3/ul (1.0-4.8) 07/30/19 04:38 Absolute Monos (auto) 0.8 10^3/ul (0-0.8) 07/30/19 04:38 Absolute Eos (auto) 0.1 10^3/ul (0-0.6) 07/30/19 04:38 Absolute Basos (auto) 0.1 10^3/ul (0-0.2) 07/30/19 04:38 Absolute Nucleated RBC 0.0 10^3/ul 07/30/19 04:38 Nucleated RBC % 0.1 07/30/19 04:38 INR (Anticoag Therapy) 0.96 (0.82-1.09) 07/22/19 15:10 APTT 31.7 seconds (26.0-38.0) 07/22/19 15:10 ABG pH 7.46 (7.35-7.45) H 07/24/19 22:40 ABG pCO2 33 mmHg (35-45) L 07/24/19 22:40 ABG pO2 74 mmHg (80-100) L 07/24/19 22:40 ABG HCO3 25.1 mmol/L (19-31) 07/24/19 22:40 ABG O2 Saturation 97.1 % (94.0-98.0) 07/24/19 22:40 ABG Base Excess 0.3 mmol/L (-2.0-2.0) 07/24/19 22:40 Sodium 136 mmol/L (135-145) 07/30/19 04:38 Potassium 3.9 mmol/L (3.5-5.0) 07/30/19 04:38 Chloride 103 mmol/L (101-111) 07/30/19 04:38 Carbon Dioxide 25 mmol/L (22-32) 07/30/19 04:38 Anion Gap 8 mmol/L (2-11) 07/30/19 04:38 BUN 22 mg/dL (6-24) 07/30/19 04:38 Creatinine 1.24 mg/dL (0.67-1.17) H 07/30/19 04:38 Est GFR ( Amer) 69.3 (>60) 07/30/19 04:38 Est GFR (Non-Af Amer) 57.3 (>60) 07/30/19 04:38 BUN/Creatinine Ratio 17.7 (8-20) 07/30/19 04:38 Glucose 178 mg/dL (70-100) H 07/30/19 04:38 POC Glucose (mg/dL) 204 mg/dL (70-100) H 07/30/19 07:44 Hemoglobin A1c 7.8 % (4.0-5.6) H 07/25/19 05:11 Calcium 9.2 mg/dL (8.6-10.3) 07/30/19 04:38 Total Bilirubin 0.70 mg/dL (0.2-1.0) 07/22/19 15:10 AST 15 U/L (13-39) 07/22/19 15:10 ALT 24 U/L (7-52) 07/22/19 15:10 Alkaline Phosphatase 63 U/L (34-104) 07/22/19 15:10 Troponin I 0.01 ng/mL (<0.03) 07/24/19 22:41 Total Protein 6.9 g/dL (6.4-8.9) 07/22/19 15:10 Albumin 4.2 g/dL (3.2-5.2) 07/22/19 15:10 Globulin 2.7 g/dL (2-4) 07/22/19 15:10 Albumin/Globulin Ratio 1.6 (1-3) 07/22/19 15:10 Urine Color Yellow 07/27/19 19:35 Urine Appearance Clear 07/27/19 19:35 Urine pH 5.0 (5-9) 07/27/19 19:35 Ur Specific [place] 1.022 (1.010-1.030) 07/27/19 19:35 Urine Protein Negative (Negative) 07/27/19 19:35 Urine Ketones Negative (Negative) 07/27/19 19:35 Urine Blood 1+ (Negative) A 07/27/19 19:35 Urine Nitrate Negative (Negative) 07/27/19 19:35 Urine Bilirubin Negative (Negative) 07/27/19 19:35 Urine Urobilinogen Negative (Negative) 07/27/19 19:35 Ur Leukocyte Esterase Negative (Negative) 07/27/19 19:35 Urine WBC (Auto) Absent (Absent) 07/27/19 19:35 Urine RBC (Auto) Trace(0-2/hpf) (Absent) 07/27/19 19:35 Urine Bacteria Absent (Absent) 07/27/19 19:35 Urine Glucose 3+(>=500 mg/dl) (Negative) A 07/27/19 19:35 Objective: A&O x3, NAD Dressing changed, Incision C/D/I, Calves soft and nontender, No edema, NVI distally Assessment: s/p left TKA POD #6 Plan: OOB, PT/OT WBAT Posterior hip precautions Pain control DVT prophylaxis - Mckennaquis
[2019-07-30] MEDS: Acetaminophen TAB* 325 MG PO PRN ×2 (13:06→21:13)
--- NOTE | 2019-07-30 16:27 | PN ---
Subjective Date of Service: 07/30/19 Interval History: Reports he feels well today. Reports pain is well controlled with current pain medication. He denies any episodes of nausea or vomiting. Had normal BM today. Urinating without difficulty. Denies numbness/tingling, calf pain, sob, cp, palpitations, fever, chills Family History: Unchanged from Admission Social History: Unchanged from Admission Past Medical History: Unchanged from Admission Objective Active Medications: Acetaminophen (Tylenol Tab*) 650 mg PO Q4H PRN PRN Reason: MILD PAIN or TEMP > 100.4 Last Admin: 07/30/19 13:06 Dose: 650 mg Hydrocodone Bitart/Acetaminophen ([place] 5-325 Tab*) 1 tab PO Q4H PRN PRN Reason: PAIN - MODERATE Last Admin: 07/29/19 08:34 Dose: 1 tab Hydrocodone Bitart/Acetaminophen ([place] 5-325 Tab*) 2 tab PO Q4H PRN PRN Reason: PAIN - SEVERE Apixaban (Eliquis*) 2.5 mg PO BID [facility] Last Admin: 07/30/19 09:18 Dose: 2.5 mg Atorvastatin Calcium (Lipitor*) 40 mg PO 2100 [facility] Last Admin: 07/29/19 20:49 Dose: 40 mg Dextrose (D50w Syringe 50 Ml*) 12.5 gm IV PUSH .FOR FS < 60 - SS PRN PRN Reason: FS < 60 Fish Oil (Fish Oil (Nf)) 1,000 mg PO DAILY [facility]; Protocol Last Admin: 07/30/19 09:18 Dose: 1,000 mg Glimepiride (Glimepiride (Nf)) 2 mg PO BID [facility] Last Admin: 07/30/19 09:16 Dose: 2 mg Insulin Glargine (Lantus(*)) 15 units SUBCUT Q24H [facility] Last Admin: 07/30/19 09:47 Dose: 15 units Insulin Human Lispro (Humalog*) 0 units SUBCUT ACHS [facility]; Protocol Last Admin: 07/30/19 13:09 Dose: 2 units Insulin Human Lispro (Humalog*) 5 units SUBCUT AC [facility] Last Admin: 07/30/19 13:08 Dose: 5 units Lisinopril (Prinivil Tab*) 5 mg PO DAILY [facility] Last Admin: 07/30/19 09:47 Dose: 5 mg Magnesium Hydroxide (Milk Of Magnyonatan Liq*) 30 ml PO Q6H PRN PRN Reason: CONSTIPATION Last Admin: 07/26/19 21:52 Dose: 30 ml Melatonin (Melatonin) 3 mg PO BEDTIME PRN PRN Reason: SLEEP Last Admin: 07/29/19 02:17 Dose: 3 mg Metformin HCl (Glucophage*) 500 mg PO 0800,1700 [facility] Last Admin: 07/30/19 09:16 Dose: 500 mg Ondansetron HCl (Zofran Inj*) 4 mg IV Q4H PRN PRN Reason: NAUSEA/VOMITING Last Admin: 07/28/19 01:10 Dose: 4 mg Senna (Senokot 8.6 Mg Tab*) 1 tab PO DAILY PRN PRN Reason: CONSTIPATION Tamsulosin HCl (Flomax Cap*) 0.4 mg PO DAILY [facility] Last Admin: 07/30/19 09:17 Dose: 0.4 mg Vital Signs - 8 hr 07/30/19 07/30/19 07/30/19 09:00 11:19 15:33 Temperature 98.2 F 97.6 F Pulse Rate 103 88 Respiratory 16 17 18 Rate Blood Pressure 154/71 138/58 (mmHg) O2 Sat by Pulse 98 96 Oximetry Oxygen Devices in Use Now: None Result Diagrams: 07/30/19 04:38 07/30/19 04:38 Additional Lab and Data: Laboratory Results - last 24 hr 07/28/19 07/28/19 07/29/19 17:10 20:56 08:28 POC Glucose (mg/dL) 216 H 242 H 162 H 07/29/19 11:43 POC Glucose (mg/dL) 239 H Microbiology and Other Data: . Assess/Plan/Problems-Billing Assessment: 73 yo male patient with hx significant for Diabetes, HTN, Right hip arthroplasty , and Left Knee replacement. Pt comes to hospital after mechanical fall while skiing and sustaining L hip Fx. - Patient Problems (1) Hip fracture, left Comment: - S/P LTHA 07/24, dressing CDI, adequate pain control - Management per orthopedics - Seeking PMRU services at d/c, not yet approved - PT/OT, bowel regimen - Avoid Opiates as much as possible for constipation and nausea. (2) Acute kidney injury Comment: - Unclear baseline at last creatinine before this visit was 06/2017 and was 1.06. - Recent Cret 1.24 - Continue to monitor, this may be patient's baseline, appears euvolemic (3) Anemia Comment: - H&H slight decrease since 07/27. Multiple lab draws? No obvious bleeding - Initial anemia to acute blood loss - No indication for transfusion at this time (4) BPH (benign prostatic hyperplasia) Comment: - Denies urinary symptoms - Continue Flomax 0.4mg (5) Diabetes Comment: - Poor Control - Lispro SS - Glimepride dose increased to 2mg BID for better control - Restart Metformin at decreased dose, monitor renal function - Patient would strongly prefer no insulin for BG control at D/C - Add on basal insulin and scheduled mealtime insulin. (6) HTN (hypertension) Current Visit: Yes Status: Acute Code(s): I10 - ESSENTIAL (PRIMARY) HYPERTENSION SNOMED Code(s): 68632383 Comment: - BP occasionally high - Resume Lisinopril and monitor Cret. (7) Hyperlipidemia Comment: - Continue Lipitor 40mg (8) Nausea & vomiting Comment: - Denies any episodes of N/V in last 48 hrs. - Had bried N/V episodes previously on this admission - Continue anti-emetics - Avoid Opiates - Unclear cause, likely post-operative complication. (9) DVT prophylaxis Comment: -Eliquis 2.5mg BID for 30 days. Started 07/25 (10) Full code status Status and Disposition: status: stable disposition: surgical stay unit, hopeful D/C soon to PMRU vs other rehab. Attending: Arash Fuentes
[2019-07-30] MEDS: Atorvastatin* 40 MG TAB PO SCH (21:13)
[2019-07-30] MEDS: Melatonin 3 MG TAB PO PRN (23:04)
[2019-07-31] MEDS: Acetaminophen TAB* 325 MG PO PRN ×2 (03:47→20:13)
--- NOTE | 2019-07-31 08:53 | PN ---
Progress Note - Progress Note Date of Service: 07/31/19 SOAP: Subjective: Pt seen and examined sitting in chair, No complaint of pain. Denies CP, SOB, F/ C. Vital Signs: Temp Pulse Resp BP Pulse Ox 97.3 F 77 18 132/64 97 07/31/19 08:10 07/31/19 08:10 07/31/19 08:10 07/31/19 08:10 07/31/19 08:10 Laboratory Last Values WBC 6.4 10^3/uL (3.5-10.8) 07/30/19 04:38 RBC 2.47 10^6 /uL (4.18-5.48) L 07/30/19 04:38 Hgb 7.8 g/dL (14.0-18.0) L 07/30/19 04:38 Hct 23 % (42-52) L 07/30/19 04:38 MCV 93 fL (80-94) 07/30/19 04:38 MCH 32 pg (27-31) H 07/30/19 04:38 MCHC 34 g/dL (31-36) 07/30/19 04:38 RDW 13 % (10-15) 07/30/19 04:38 Plt Count 266 10^3/uL (150-450) 07/30/19 04:38 MPV 7.1 fL (7.4-10.4) L 07/30/19 04:38 Neut % (Auto) 63.5 % 07/30/19 04:38 Lymph % (Auto) 20.9 % 07/30/19 04:38 [place] % (Auto) 12.4 % 07/30/19 04:38 Eos % (Auto) 1.9 % 07/30/19 04:38 Baso % (Auto) 1.3 % 07/30/19 04:38 Absolute Neuts (auto) 4.1 10^3/ul (1.5-7.7) 07/30/19 04:38 Absolute Lymphs (auto) 1.3 10^3/ul (1.0-4.8) 07/30/19 04:38 Absolute Monos (auto) 0.8 10^3/ul (0-0.8) 07/30/19 04:38 Absolute Eos (auto) 0.1 10^3/ul (0-0.6) 07/30/19 04:38 Absolute Basos (auto) 0.1 10^3/ul (0-0.2) 07/30/19 04:38 Absolute Nucleated RBC 0.0 10^3/ul 07/30/19 04:38 Nucleated RBC % 0.1 07/30/19 04:38 INR (Anticoag Therapy) 0.96 (0.82-1.09) 07/22/19 15:10 APTT 31.7 seconds (26.0-38.0) 07/22/19 15:10 ABG pH 7.46 (7.35-7.45) H 07/24/19 22:40 ABG pCO2 33 mmHg (35-45) L 07/24/19 22:40 ABG pO2 74 mmHg (80-100) L 07/24/19 22:40 ABG HCO3 25.1 mmol/L (19-31) 07/24/19 22:40 ABG O2 Saturation 97.1 % (94.0-98.0) 07/24/19 22:40 ABG Base Excess 0.3 mmol/L (-2.0-2.0) 07/24/19 22:40 Sodium 136 mmol/L (135-145) 07/30/19 04:38 Potassium 3.9 mmol/L (3.5-5.0) 07/30/19 04:38 Chloride 103 mmol/L (101-111) 07/30/19 04:38 Carbon Dioxide 25 mmol/L (22-32) 07/30/19 04:38 Anion Gap 8 mmol/L (2-11) 07/30/19 04:38 BUN 22 mg/dL (6-24) 07/30/19 04:38 Creatinine 1.24 mg/dL (0.67-1.17) H 07/30/19 04:38 Est GFR ( Amer) 69.3 (>60) 07/30/19 04:38 Est GFR (Non-Af Amer) 57.3 (>60) 07/30/19 04:38 BUN/Creatinine Ratio 17.7 (8-20) 07/30/19 04:38 Glucose 178 mg/dL (70-100) H 07/30/19 04:38 POC Glucose (mg/dL) 176 mg/dL (70-100) H 07/31/19 07:54 Hemoglobin A1c 7.8 % (4.0-5.6) H 07/25/19 05:11 Calcium 9.2 mg/dL (8.6-10.3) 07/30/19 04:38 Total Bilirubin 0.70 mg/dL (0.2-1.0) 07/22/19 15:10 AST 15 U/L (13-39) 07/22/19 15:10 ALT 24 U/L (7-52) 07/22/19 15:10 Alkaline Phosphatase 63 U/L (34-104) 07/22/19 15:10 Troponin I 0.01 ng/mL (<0.03) 07/24/19 22:41 Total Protein 6.9 g/dL (6.4-8.9) 07/22/19 15:10 Albumin 4.2 g/dL (3.2-5.2) 07/22/19 15:10 Globulin 2.7 g/dL (2-4) 07/22/19 15:10 Albumin/Globulin Ratio 1.6 (1-3) 07/22/19 15:10 Urine Color Yellow 07/27/19 19:35 Urine Appearance Clear 07/27/19 19:35 Urine pH 5.0 (5-9) 07/27/19 19:35 Ur Specific [place] 1.022 (1.010-1.030) 07/27/19 19:35 Urine Protein Negative (Negative) 07/27/19 19:35 Urine Ketones Negative (Negative) 07/27/19 19:35 Urine Blood 1+ (Negative) A 07/27/19 19:35 Urine Nitrate Negative (Negative) 07/27/19 19:35 Urine Bilirubin Negative (Negative) 07/27/19 19:35 Urine Urobilinogen Negative (Negative) 07/27/19 19:35 Ur Leukocyte Esterase Negative (Negative) 07/27/19 19:35 Urine WBC (Auto) Absent (Absent) 07/27/19 19:35 Urine RBC (Auto) Trace(0-2/hpf) (Absent) 07/27/19 19:35 Urine Bacteria Absent (Absent) 07/27/19 19:35 Urine Glucose 3+(>=500 mg/dl) (Negative) A 02/26/20 19:35 Objective: A&O x3, NAD Dressing changed, Incision C/D/I, Calves soft and nontender, 2+ pitting edema LLE, NVI distally. Assessment: s/p left DALE POD #7 Plan: OOB, PT/OT WBAT Pain control DVT prophylaxis - eliquis Likely PMRU or other rehab 07/30
[2019-07-31] MEDS: Insulin LISPRO* 1 UNITS UNIT SUBCUT SCH ×7 (10:04→20:14)
[2019-07-31] MEDS: CMCS:OMEGA-3 FATTY ACIDS (NF) 1,000 MG CAP PO SCH (10:05)
[2019-07-31] MEDS: Insulin GLARGINE(*) 1 UNITS UNIT SUBCUT SCH (10:05)
[2019-07-31] MEDS: Apixaban* 2.5 MG TAB PO SCH ×2 (10:06→20:13)
[2019-07-31] MEDS: metFORMIN* 500 MG TAB PO SCH ×2 (10:06→17:50)
[2019-07-31] MEDS: CMCS: Glimepiride (NF) 2 MG TAB PO SCH ×2 (10:06→20:13)
[2019-07-31] MEDS: Tamsulosin CAP* 0.4 MG PO SCH ×2 (10:30→20:13)
[2019-07-31] MEDS: Lisinopril TAB* 5 MG PO SCH (10:42)
--- NOTE | 2019-07-31 14:01 | PN ---
Subjective Date of Service: 07/31/19 Interval History: Patient is feeling well. Patient has minimal pain, no diarrhea, no N/V, no abdominal pain. Patient denies F/C, CP, SOB. Patient is ambulating well, and is looking forward to rehab. Family History: Unchanged from Admission Social History: Unchanged from Admission Past Medical History: Unchanged from Admission Objective Active Medications: Acetaminophen (Tylenol Tab*) 650 mg PO Q4H PRN PRN Reason: MILD PAIN or TEMP > 100.4 Last Admin: 07/31/19 03:47 Dose: 650 mg Hydrocodone Bitart/Acetaminophen ([place] 5-325 Tab*) 1 tab PO Q4H PRN PRN Reason: PAIN - MODERATE Last Admin: 07/29/19 08:34 Dose: 1 tab Hydrocodone Bitart/Acetaminophen ([place] 5-325 Tab*) 2 tab PO Q4H PRN PRN Reason: PAIN - SEVERE Apixaban (Eliquis*) 2.5 mg PO BID [facility] Last Admin: 07/31/19 10:06 Dose: 2.5 mg Atorvastatin Calcium (Lipitor*) 40 mg PO 2100 [facility] Last Admin: 07/30/19 21:13 Dose: 40 mg Dextrose (D50w Syringe 50 Ml*) 12.5 gm IV PUSH .FOR FS < 60 - SS PRN PRN Reason: FS < 60 Fish Oil (Fish Oil (Nf)) 1,000 mg PO DAILY [facility]; Protocol Last Admin: 07/31/19 10:05 Dose: 1,000 mg Glimepiride (Glimepiride (Nf)) 2 mg PO BID [facility] Last Admin: 07/31/19 10:06 Dose: 2 mg Insulin Glargine (Lantus(*)) 15 units SUBCUT Q24H [facility] Last Admin: 07/31/19 10:05 Dose: 15 units Insulin Human Lispro (Humalog*) 0 units SUBCUT ACHS [facility]; Protocol Last Admin: 07/31/19 10:05 Dose: 2 units Insulin Human Lispro (Humalog*) 5 units SUBCUT AC [facility] Last Admin: 07/31/19 10:04 Dose: 5 units Lisinopril (Prinivil Tab*) 5 mg PO DAILY [facility] Last Admin: 07/31/19 10:42 Dose: 5 mg Magnesium Hydroxide (Milk Of Magnesia Liq*) 30 ml PO Q6H PRN PRN Reason: CONSTIPATION Last Admin: 07/26/19 21:52 Dose: 30 ml Melatonin (Melatonin) 3 mg PO BEDTIME PRN PRN Reason: SLEEP Last Admin: 07/30/19 23:04 Dose: 3 mg Metformin HCl (Glucophage*) 500 mg PO 0800,1700 [facility] Last Admin: 07/31/19 10:06 Dose: 500 mg Ondansetron HCl (Zofran Inj*) 4 mg IV Q4H PRN PRN Reason: NAUSEA/VOMITING Last Admin: 07/28/19 01:10 Dose: 4 mg Senna (Senokot 8.6 Mg Tab*) 1 tab PO DAILY PRN PRN Reason: CONSTIPATION Tamsulosin HCl (Flomax Cap*) 0.4 mg PO BEDTIME [facility] Vital Signs - 8 hr 07/31/19 07/31/19 07/31/19 08:10 08:30 11:35 Temperature 97.3 F 98.8 F Pulse Rate 77 84 Respiratory 18 18 18 Rate Blood Pressure 132/64 142/64 (mmHg) O2 Sat by Pulse 97 97 Oximetry Oxygen Devices in Use Now: None Appearance: Patient is a 74yo male who appears stated age and is sitting in the bed in [facility]. Eyes: No Scleral Icterus, PERRLA Ears/Nose/Mouth/Throat: NL Teeth, Lips, Gums, Clear Oropharnyx, Mucous Membranes Moist Neck: NL Appearance and Movements; NL JVP, Trachea Midline Respiratory: Symmetrical Chest Expansion and Respiratory Effort, Clear to Auscultation Cardiovascular: NL Sounds; No Murmurs; No JVD, RRR, No Edema Abdominal: NL Sounds; No Tenderness; No Distention, No Hepatosplenomegaly Lymphatic: No Cervical Adenopathy Extremities: No Edema, No Clubbing, Cyanosis Skin: - - Left Hip incision not visualized. Neurological: Alert and Oriented x 3, NL Sensation, NL Muscle Strength and Tone , - - CN II-XII intact. Result Diagrams: 07/30/19 04:38 07/30/19 04:38 Additional Lab and Data: Laboratory Results - last 24 hr 07/28/19 07/28/19 07/29/19 17:10 20:56 08:28 POC Glucose (mg/dL) 216 H 242 H 162 H 07/29/19 11:43 POC Glucose (mg/dL) 239 H Microbiology and Other Data: . Assess/Plan/Problems-Billing Assessment: 73 yo male patient with hx significant for Diabetes, HTN, Right hip arthroplasty , and Left Knee replacement. Pt comes to hospital after mechanical fall while skiing and sustaining L hip Fx. - Patient Problems (1) Hip fracture, left Current Visit: Yes Status: Acute Code(s): S72.002A - FRACTURE OF UNSP PART OF NECK OF LEFT FEMUR, INIT SNOMED Code(s): 444086624 Comment: - S/P LTHA 07/24, dressing CDI, adequate pain control - Management per orthopedics - Seeking PMRU services at d/c, not yet approved. May need alternative rehab. - PT/OT, bowel regimen - Avoid Opiates as much as possible for constipation and nausea. (2) Acute kidney injury Current Visit: Yes Status: Acute Code(s): N17.9 - ACUTE KIDNEY FAILURE, UNSPECIFIED SNOMED Code(s): 70439423 Comment: - Unclear baseline at last creatinine before this visit was 06/2017 and was 1.06. - Recent Cret 1.24 - Continue to monitor, this may be patient's baseline, appears euvolemic (3) Anemia Current Visit: Yes Status: Acute Code(s): D64.9 - ANEMIA, UNSPECIFIED SNOMED Code(s): 520013524 Comment: - Initial anemia to acute blood loss, now stable - No indication for transfusion at this time (4) BPH (benign prostatic hyperplasia) Current Visit: Yes Status: Acute Code(s): N40.0 - BENIGN PROSTATIC HYPERPLASIA WITHOUT LOWER URINRY TRACT SYMP SNOMED Code(s): 082286517 Comment: - Denies urinary symptoms - Continue Flomax 0.4mg (5) Diabetes Current Visit: Yes Status: Acute Code(s): E11.9 - TYPE 2 DIABETES MELLITUS WITHOUT COMPLICATIONS SNOMED Code(s): 29501546 Comment: - Poor Control - Lispro SS - Glimepride dose increased to 2mg BID for better control - Restart Metformin at decreased dose, monitor renal function - Patient would strongly prefer no insulin for BG control at D/C - Add on basal insulin and scheduled mealtime insulin. (6) HTN (hypertension) Current Visit: Yes Status: Acute Code(s): I10 - ESSENTIAL (PRIMARY) HYPERTENSION SNOMED Code(s): 10939376 Comment: - Normotensive (7) Hyperlipidemia Current Visit: Yes Status: Acute Code(s): E78.5 - HYPERLIPIDEMIA, UNSPECIFIED SNOMED Code(s): 75416817 Comment: - Continue Lipitor 40mg (8) Nausea & vomiting Current Visit: Yes Status: Acute Code(s): R11.2 - NAUSEA WITH VOMITING, UNSPECIFIED SNOMED Code(s): 81222696 Comment: - Denies any episodes of N/V in last 48 hrs. - Had bried N/V episodes previously on this admission - Continue anti-emetics - Avoid Opiates - Unclear cause, likely post-operative complication. (9) DVT prophylaxis Current Visit: Yes Status: Acute Code(s): Z29.9 - ENCOUNTER FOR PROPHYLACTIC MEASURES, UNSPECIFIED SNOMED Code(s): 834653717 Comment: -Eliquis 2.5mg BID for 30 days. Started 07/25 (10) Full code status Current Visit: Yes Status: Acute Code(s): Z78.9 - OTHER SPECIFIED HEALTH STATUS SNOMED Code(s): 074702253 Status and Disposition: status: stable disposition: surgical stay unit, hopeful D/C soon to PMRU vs other rehab.
[2019-07-31] MEDS: Atorvastatin* 40 MG TAB PO SCH (20:13)
[2019-07-31] MEDS: Melatonin 3 MG TAB PO PRN (20:13)
[2019-08-01] MEDS: Insulin GLARGINE(*) 1 UNITS UNIT SUBCUT SCH (08:56)
[2019-08-01] MEDS: Insulin LISPRO* 1 UNITS UNIT SUBCUT SCH ×7 (08:57→19:58)
[2019-08-01] MEDS: CMCS:OMEGA-3 FATTY ACIDS (NF) 1,000 MG CAP PO SCH (08:58)
[2019-08-01] MEDS: Apixaban* 2.5 MG TAB PO SCH ×2 (08:59→19:57)
[2019-08-01] MEDS: Lisinopril TAB* 5 MG PO SCH (08:59)
[2019-08-01] MEDS: CMCS: Glimepiride (NF) 2 MG TAB PO SCH ×2 (08:59→19:57)
[2019-08-01] MEDS: metFORMIN* 500 MG TAB PO SCH ×2 (08:59→17:51)
[2019-08-01] MEDS: Acetaminophen TAB* 325 MG PO PRN (09:00)
--- NOTE | 2019-08-01 10:00 | PN ---
Progress Note - Progress Note Date of Service: 08/01/19 SOAP: Subjective: []Pt seen and examined at bedside. He has no complaints today. Hip pain is well controlled. Denies CP, SOB, dizziness, nausea Objective: []Gen: NAD Dressing C/D/I, DF/PF intact. NVI distally Calves soft and nontender Assessment: s/p left DALE POD #8 Plan: OOB, PT/OT WBAT Pain control DVT prophylaxis - eliquis Rehab placement pending - PMRU or SS are pt choices. Vital Signs Temp 98.6 F 08/01/19 07:28 Pulse 92 08/01/19 07:28 Resp 18 08/01/19 07:28 BP 145/74 08/01/19 07:28 Pulse Ox 96 08/01/19 07:28 Intake & Output 07/31/19 08/01/19 08/01/19 18:59 06:59 18:59 Intake Total 1480 800 Output Total 1400 650 375 Balance 80 150 -375 Intake: Oral 1480 800 Output: Urine 1400 650 375 Other: Estimated Void Medium # Bowel Movements 0 # Voids 1 Laboratory Last Values WBC 6.4 10^3/uL (3.5-10.8) 07/30/19 04:38 RBC 2.47 10^6 /uL (4.18-5.48) L 07/30/19 04:38 Hgb 7.8 g/dL (14.0-18.0) L 07/30/19 04:38 Hct 23 % (42-52) L 07/30/19 04:38 MCV 93 fL (80-94) 07/30/19 04:38 MCH 32 pg (27-31) H 07/30/19 04:38 MCHC 34 g/dL (31-36) 07/30/19 04:38 RDW 13 % (10-15) 07/30/19 04:38 Plt Count 266 10^3/uL (150-450) 07/30/19 04:38 MPV 7.1 fL (7.4-10.4) L 07/30/19 04:38 Neut % (Auto) 63.5 % 07/30/19 04:38 Lymph % (Auto) 20.9 % 07/30/19 04:38 [place] % (Auto) 12.4 % 07/30/19 04:38 Eos % (Auto) 1.9 % 07/30/19 04:38 Baso % (Auto) 1.3 % 07/30/19 04:38 Absolute Neuts (auto) 4.1 10^3/ul (1.5-7.7) 07/30/19 04:38 Absolute Lymphs (auto) 1.3 10^3/ul (1.0-4.8) 07/30/19 04:38 Absolute Monos (auto) 0.8 10^3/ul (0-0.8) 07/30/19 04:38 Absolute Eos (auto) 0.1 10^3/ul (0-0.6) 07/30/19 04:38 Absolute Basos (auto) 0.1 10^3/ul (0-0.2) 07/30/19 04:38 Absolute Nucleated RBC 0.0 10^3/ul 07/30/19 04:38 Nucleated RBC % 0.1 07/30/19 04:38 INR (Anticoag Therapy) 0.96 (0.82-1.09) 07/22/19 15:10 APTT 31.7 seconds (26.0-38.0) 07/22/19 15:10 ABG pH 7.46 (7.35-7.45) H 07/24/19 22:40 ABG pCO2 33 mmHg (35-45) L 07/24/19 22:40 ABG pO2 74 mmHg (80-100) L 07/24/19 22:40 ABG HCO3 25.1 mmol/L (19-31) 07/24/19 22:40 ABG O2 Saturation 97.1 % (94.0-98.0) 07/24/19 22:40 ABG Base Excess 0.3 mmol/L (-2.0-2.0) 07/24/19 22:40 Sodium 136 mmol/L (135-145) 07/30/19 04:38 Potassium 3.9 mmol/L (3.5-5.0) 07/30/19 04:38 Chloride 103 mmol/L (101-111) 07/30/19 04:38 Carbon Dioxide 25 mmol/L (22-32) 07/30/19 04:38 Anion Gap 8 mmol/L (2-11) 07/30/19 04:38 BUN 22 mg/dL (6-24) 07/30/19 04:38 Creatinine 1.24 mg/dL (0.67-1.17) H 07/30/19 04:38 Est GFR ( Amer) 69.3 (>60) 07/30/19 04:38 Est GFR (Non-Af Amer) 57.3 (>60) 07/30/19 04:38 BUN/Creatinine Ratio 17.7 (8-20) 07/30/19 04:38 Glucose 178 mg/dL (70-100) H 07/30/19 04:38 POC Glucose (mg/dL) 184 mg/dL (70-100) H 07/31/19 16:57 Hemoglobin A1c 7.8 % (4.0-5.6) H 07/25/19 05:11 Calcium 9.2 mg/dL (8.6-10.3) 07/30/19 04:38 Total Bilirubin 0.70 mg/dL (0.2-1.0) 07/22/19 15:10 AST 15 U/L (13-39) 07/22/19 15:10 ALT 24 U/L (7-52) 07/22/19 15:10 Alkaline Phosphatase 63 U/L (34-104) 07/22/19 15:10 Troponin I 0.01 ng/mL (<0.03) 07/24/19 22:41 Total Protein 6.9 g/dL (6.4-8.9) 07/22/19 15:10 Albumin 4.2 g/dL (3.2-5.2) 07/22/19 15:10 Globulin 2.7 g/dL (2-4) 07/22/19 15:10 Albumin/Globulin Ratio 1.6 (1-3) 07/22/19 15:10 Urine Color Yellow 07/27/19 19:35 Urine Appearance Clear 07/27/19 19:35 Urine pH 5.0 (5-9) 07/27/19 19:35 Ur Specific [place] 1.022 (1.010-1.030) 07/27/19 19:35 Urine Protein Negative (Negative) 07/27/19 19:35 Urine Ketones Negative (Negative) 07/27/19 19:35 Urine Blood 1+ (Negative) A 07/27/19 19:35 Urine Nitrate Negative (Negative) 07/27/19 19:35 Urine Bilirubin Negative (Negative) 07/27/19 19:35 Urine Urobilinogen Negative (Negative) 07/27/19 19:35 Ur Leukocyte Esterase Negative (Negative) 07/27/19 19:35 Urine WBC (Auto) Absent (Absent) 07/27/19 19:35 Urine RBC (Auto) Trace(0-2/hpf) (Absent) 07/27/19 19:35 Urine Bacteria Absent (Absent) 07/27/19 19:35 Urine Glucose 3+(>=500 mg/dl) (Negative) A 07/27/19 19:35 <Natalee Pierre - Last Filed: 08/01/19 10:01> - Progress Note SOAP: Subjective: No complaints. Per patient, pain decreasing, mobility increasing, awaiting placement. Objective: NAD Assessment: As above Plan: - As above - Patient should follow up with me in clinic 2-3 weeks postop for wound check, removal of vance, and xrays <Hai Lyle - Last Filed: 08/01/19 18:06>
--- NOTE | 2019-08-01 14:54 | PN ---
Subjective Date of Service: 08/01/19 Interval History: Patient is having increased pain in hip related to the uncomfortable beds. Patient denies other symptoms. Patient is progressing with PT. Patient denies F/ C, N/V, abdominal pain, diarrhea, or other pain. Family History: Unchanged from Admission Social History: Unchanged from Admission Past Medical History: Unchanged from Admission Objective Active Medications: Acetaminophen (Tylenol Tab*) 650 mg PO Q4H PRN PRN Reason: MILD PAIN or TEMP > 100.4 Last Admin: 08/01/19 09:00 Dose: 650 mg Hydrocodone Bitart/Acetaminophen ([place] 5-325 Tab*) 1 tab PO Q4H PRN PRN Reason: PAIN - MODERATE Last Admin: 07/29/19 08:34 Dose: 1 tab Hydrocodone Bitart/Acetaminophen ([place] 5-325 Tab*) 2 tab PO Q4H PRN PRN Reason: PAIN - SEVERE Apixaban (Eliquis*) 2.5 mg PO BID [facility] Last Admin: 08/01/19 08:59 Dose: 2.5 mg Atorvastatin Calcium (Lipitor*) 40 mg PO 2100 [facility] Last Admin: 07/31/19 20:13 Dose: 40 mg Dextrose (D50w Syringe 50 Ml*) 12.5 gm IV PUSH .FOR FS < 60 - SS PRN PRN Reason: FS < 60 Fish Oil (Fish Oil (Nf)) 1,000 mg PO DAILY [facility]; Protocol Last Admin: 08/01/19 08:58 Dose: 1,000 mg Glimepiride (Glimepiride (Nf)) 2 mg PO BID [facility] Last Admin: 08/01/19 08:59 Dose: 2 mg Insulin Glargine (Lantus(*)) 15 units SUBCUT Q24H [facility] Last Admin: 08/01/19 08:56 Dose: 15 units Insulin Human Lispro (Humalog*) 0 units SUBCUT ACHS [facility]; Protocol Last Admin: 08/01/19 12:47 Dose: 8 units Insulin Human Lispro (Humalog*) 5 units SUBCUT AC [facility] Last Admin: 08/01/19 12:47 Dose: 5 units Lisinopril (Prinivil Tab*) 5 mg PO DAILY [facility] Last Admin: 08/01/19 08:59 Dose: 5 mg Magnesium Hydroxide (Milk Of Magnesia Liq*) 30 ml PO Q6H PRN PRN Reason: CONSTIPATION Last Admin: 07/26/19 21:52 Dose: 30 ml Melatonin (Melatonin) 3 mg PO BEDTIME PRN PRN Reason: SLEEP Last Admin: 07/31/19 20:13 Dose: 3 mg Metformin HCl (Glucophage*) 500 mg PO 0800,1700 [facility] Last Admin: 08/01/19 08:59 Dose: 500 mg Ondansetron HCl (Zofran Inj*) 4 mg IV Q4H PRN PRN Reason: NAUSEA/VOMITING Last Admin: 07/28/19 01:10 Dose: 4 mg Senna (Senokot 8.6 Mg Tab*) 1 tab PO DAILY PRN PRN Reason: CONSTIPATION Tamsulosin HCl (Flomax Cap*) 0.4 mg PO BEDTIME [facility] Last Admin: 07/31/19 20:13 Dose: 0.4 mg Vital Signs - 8 hr 08/01/19 08/01/19 08/01/19 07:28 08:00 12:51 Temperature 98.6 F 98.7 F Pulse Rate 92 85 Respiratory 18 18 18 Rate Blood Pressure 145/74 139/67 (mmHg) O2 Sat by Pulse 96 98 Oximetry Oxygen Devices in Use Now: None Appearance: Patient is a 74yo male who appears stated age and is sitting in the bed in [facility]. Eyes: No Scleral Icterus Ears/Nose/Mouth/Throat: NL Teeth, Lips, Gums, Clear Oropharnyx, Mucous Membranes Moist Neck: NL Appearance and Movements; NL JVP, Trachea Midline Respiratory: Symmetrical Chest Expansion and Respiratory Effort, Clear to Auscultation Cardiovascular: NL Sounds; No Murmurs; No JVD, RRR, No Edema Abdominal: NL Sounds; No Tenderness; No Distention Lymphatic: No Cervical Adenopathy Extremities: No Edema, No Clubbing, Cyanosis Neurological: Alert and Oriented x 3, NL Sensation, NL Muscle Strength and Tone , - - CN II-XII intact. Result Diagrams: 07/30/19 04:38 07/30/19 04:38 Additional Lab and Data: Laboratory Results - last 24 hr 07/28/19 07/28/19 07/29/19 17:10 20:56 08:28 POC Glucose (mg/dL) 216 H 242 H 162 H 07/29/19 11:43 POC Glucose (mg/dL) 239 H Microbiology and Other Data: . Assess/Plan/Problems-Billing Assessment: 73 yo male patient with hx significant for Diabetes, HTN, Right hip arthroplasty , and Left Knee replacement. Pt comes to hospital after mechanical fall while skiing and sustaining L hip Fx. - Patient Problems (1) Hip fracture, left Current Visit: Yes Status: Acute Code(s): S72.002A - FRACTURE OF UNSP PART OF NECK OF LEFT FEMUR, INIT SNOMED Code(s): 161210589 Comment: - S/P LTHA 07/24, dressing CDI, adequate pain control - Management per orthopedics - Seeking PMRU services at d/c, not yet approved. May need alternative rehab. - PT/OT, bowel regimen - Avoid Opiates as much as possible for constipation and nausea. (2) Acute kidney injury Current Visit: Yes Status: Acute Code(s): N17.9 - ACUTE KIDNEY FAILURE, UNSPECIFIED SNOMED Code(s): 25983665 Comment: - Unclear baseline at last creatinine before this visit was 06/2017 and was 1.06. - Recent Cret 1.24 - Continue to monitor, this may be patient's baseline, appears euvolemic (3) Anemia Current Visit: Yes Status: Acute Code(s): D64.9 - ANEMIA, UNSPECIFIED SNOMED Code(s): 305902697 Comment: - Initial anemia to acute blood loss, now stable - No indication for transfusion at this time (4) BPH (benign prostatic hyperplasia) Current Visit: Yes Status: Acute Code(s): N40.0 - BENIGN PROSTATIC HYPERPLASIA WITHOUT LOWER URINRY TRACT SYMP SNOMED Code(s): 232851224 Comment: - Denies urinary symptoms - Continue Flomax 0.4mg (5) Diabetes Current Visit: Yes Status: Acute Code(s): E11.9 - TYPE 2 DIABETES MELLITUS WITHOUT COMPLICATIONS SNOMED Code(s): 18758389 Comment: - Again worsening control. - Lispro SS - Glimepride dose increased to 2mg BID for better control - Restart Metformin at decreased dose, monitor renal function - Patient would strongly prefer no insulin for BG control at D/C - Continue basal insulin and scheduled mealtime insulin. (6) HTN (hypertension) Current Visit: Yes Status: Acute Code(s): I10 - ESSENTIAL (PRIMARY) HYPERTENSION SNOMED Code(s): 82183171 Comment: - Normotensive (7) Hyperlipidemia Current Visit: Yes Status: Acute Code(s): E78.5 - HYPERLIPIDEMIA, UNSPECIFIED SNOMED Code(s): 02022095 Comment: - Continue Lipitor 40mg (8) DVT prophylaxis Current Visit: Yes Status: Acute Code(s): Z29.9 - ENCOUNTER FOR PROPHYLACTIC MEASURES, UNSPECIFIED SNOMED Code(s): 634040616 Comment: -Eliquis 2.5mg BID for 30 days. Started 07/25 (9) Full code status Current Visit: Yes Status: Acute Code(s): Z78.9 - OTHER SPECIFIED HEALTH STATUS SNOMED Code(s): 018129807 Status and Disposition: status: stable disposition: surgical stay unit, hopeful D/C soon to PMRU vs other rehab.
[2019-08-01] MEDS: Atorvastatin* 40 MG TAB PO SCH (19:57)
[2019-08-01] MEDS: Tamsulosin CAP* 0.4 MG PO SCH (19:57)
[2019-08-02] MEDS: Lisinopril TAB* 5 MG PO SCH (08:28)
[2019-08-02] MEDS: Apixaban* 2.5 MG TAB PO SCH (08:28)
[2019-08-02] MEDS: CMCS: Glimepiride (NF) 2 MG TAB PO SCH (08:28)
[2019-08-02] MEDS: Acetaminophen TAB* 325 MG PO PRN ×2 (08:29→14:09)
[2019-08-02] MEDS: metFORMIN* 500 MG TAB PO SCH (08:29)
[2019-08-02] MEDS: CMCS:OMEGA-3 FATTY ACIDS (NF) 1,000 MG CAP PO SCH (08:30)
[2019-08-02 09:54] LABS: Hematocrit 24 % (42-52)
[2019-08-02] MEDS: Insulin GLARGINE(*) 1 UNITS UNIT SUBCUT SCH (10:10)
[2019-08-02] MEDS: Insulin LISPRO* 1 UNITS UNIT SUBCUT SCH ×4 (10:13→14:07)
[2019-08-02 11:14] VITALS: BP 135/65
--- NOTE | 2019-08-02 11:34 | DS ---
CC: Dr. Matt Arias; Dr. Hai Lyle * DATE OF ADMISSION: 07/22/2019. DATE OF DISCHARGE: 08/02/2019. PRIMARY CARE PHYSICIAN: Dr. Matt Arias. ORTHOPEDIST: Dr. Hai Lyle. ATTENDING PHYSICIAN: Dr. Lukas Nguyen * (dictated by SHAINA Lemon). PRIMARY DISCHARGE DIAGNOSES: 1. Left total hip replacement due to left femoral neck fracture 07/24/2019. 2. Postoperative tachycardia, improving. 3. Postoperative nausea and vomiting, resolved. 4. Hypoxia, resolved. 5. Anemia, stable. 6. Acute kidney injury, resolved. SECONDARY DIAGNOSES: 1. Diabetes mellitus type 2. 2. Hypertension. 3. Hyperlipidemia. 4. Fibromyalgia. 5. History of diverticulitis. 6. BPH. STUDIES WHILE IN THE HOSPITAL: Please see discharge summary dictated by SHAINA Tom on 07/28/2019. PROCEDURES WHILE DONE IN THE HOSPITAL: Left total hip arthroplasty for displaced left hip femoral neck fracture performed by Hai Lyle 2019. DISCHARGE MEDICATIONS: 1. Acetaminophen 650 mg p.o. q.4 hours prn. 2. Apixaban 2.5 mg p.o. b.i.d. 3. Atorvastatin 40 mg p.o. daily. 4. Glimepiride 1 mg p.o. b.i.d. 5. Hydrocodone/acetaminophen 5/325 two tabs p.o. q.4 hours prn. 6. Insulin Glargine 15 units subcu q.24 hours. 7. Insulin Lispro 5 units subcu a.c. 8. Lispro sliding scale. 9. Lisinopril 5 mg p.o. daily. 10. Loratadine 10 mg p.o. daily. 11. Magnesium Hydroxide 30 ml p.o. q.6 hours prn. 12. Melatonin 3 mg p.o. at bedtime prn. 13. Metformin 500 mg p.o. 0800, 1700. 14. Methocarbamol 500 mg p.o. t.i.d. prn. 15. Naproxen 220 mg p.o. daily prn. 16. [place]-3 fatty acids 1,000 mg p.o. daily. 17. Ondansetron 4 mg p.o. q.6 hours prn. 18. Senna one tab p.o. daily prn. 19. Tamsulosin 0.4 mg p.o. daily. 20. Trazodone 50 to 100 mg p.o. at bedtime. 21. Valacyclovir 1 gm p.o. daily. HISTORY OF PRESENT ILLNESS/HOSPITAL COURSE: Please refer to the history and physical dictated by Martinez Sinclair NP and discharge summary dictated by SHAINA Tom on 07/28/2019. In short, Mr. Delaney is a 74-year-old male with a past medical history of diabetes, hypertension, and hyperlipidemia who presented to the ER on July 22 after a fall during skiing. He was found to have a left hip fracture. Total hip arthroplasty was recommended. This was performed on July 24 with good results. The patient's hospital stay was complicated by anemia which is stable at discharge. He also had hypoxia and postoperative tachycardia concerning for pulmonary embolism. Chest CTA was obtained and showed no pulmonary embolism. At the time of discharge, the patient's tachycardia is improving. He is no longer hypoxic. He was noted to have an acute kidney injury at admission which improved somewhat with hydration. It appears that the patient has baseline CKD stage 1. Blood glucose was a concern postoperatively. His Metformin and Glimepiride were resumed and he was started on insulin. He is disinterested in continuing insulin, although agreeable as it is necessary at this time. He should follow-up as an outpatient with his primary care provider regarding further work-up. At this time, the patient is stable for discharge. He denies chest pain, shortness of breath, cough, fever, chills, abdominal pain, nausea, vomiting, diarrhea, constipation, myalgias, arthralgias. He reports no pain in the left hip at this time and no pain with walking. He does report pain when sitting for long periods of time. He has been walking with a walker with no difficulty. He is eating and drinking well and reports that he had a bowel movement today. Mr. Delaney is stable for discharge home. PHYSICAL EXAMINATION: General: Mr. Delaney is a well-developed, well-nourished, overweight, older white male who is sitting in a chair with his lower extremities at the floor. He appears to be in no acute distress. He is breathing comfortable on room air. He is pleasant, cooperative, and appropriate. HEENT: PERRL, EOMI, nonicteric sclerae. Hearing is grossly intact. Oral mucous membranes are moist, there are no lesions. The pharynx is clear. The tongue is at midline. Palate is elevated symmetrically. Cardiovascular: Regular rate and rhythm with S1, S2 present. No murmurs, rubs, clicks, or gallops. There is no JVD. There is left lower extremity 1+ pitting edema on the surgical leg. Pulmonary: Symmetrical chest expansion. No use of accessory muscles. Clear to auscultation bilaterally without rhonchi, wheezes, or rales. Abdomen: Bowel sounds in all quadrants. Soft without tenderness to palpation. Musculoskeletal: Full range of motion. The left hip has a clean, dry, and intact dressing in place. Neuro: The patient is awake. He is alert and oriented times three. Cranial nerves II through XII are grossly intact. Sensation intake to the left lower extremity. DISCHARGE PLAN: Mr. Delaney will be discharged to [facility]. DIET: 1. Heart healthy. 2. ADA/diabetic. ACTIVITY: 1. Weightbearing as tolerated. 2. Continue PT/OT. 3. Continue hip precautions. Do not cross legs or bend greater than 90 degrees /squat. EDUCATION: 1. Follow-up with Dr. Lyle within seven to ten days for staple removal and right hip replacement follow-up. 2. Follow-up with Dr. Rodríguez, [facility]. Call for an appointment. 3. Follow-up with primary care provider at discharge from [facility]. 4. Return for any concerns. This is a summarized report of a complex medical history and hospital stay. Or further details, please see the entire medical record. TIME SPENT: Approximately 30 minutes were spent on this discharge, greater than half of that time was spent [id number] with the patient discussing discharge plans and instructions. SHAINA ALFRED [id number]/[facility] #: [id number] OLMAN
== END 2019-08-02 14:20 | disposition home or self-care (01) | DRG 470 ==
LOC: ED 13:25 → MED 16:46 → SSU 07-23 16:11
PROVIDERS: ADMIT Internal Medicine; ATTEND Internal Medicine
PROC: 0SRB04Z Replacement of Left Hip Joint with Ceramic on Polyethylene Synthetic Substitute, Open Approach (ICD-10-PCS; principal; 2019-07-24 08:00)
DX: S72.002A Fracture of unspecified part of neck of left femur, initial encounter for closed fracture (principal); N17.9 Acute kidney failure, unspecified; D62 Acute posthemorrhagic anemia; Z96.652 Presence of left artificial knee joint; Z96.641 Presence of right artificial hip joint; M16.12 Unilateral primary osteoarthritis, left hip; E78.5 Hyperlipidemia, unspecified; M79.7 Fibromyalgia; N40.0 Benign prostatic hyperplasia without lower urinary tract symptoms; R11.2 Nausea with vomiting, unspecified; E11.65 Type 2 diabetes mellitus with hyperglycemia; R00.0 Tachycardia, unspecified; R09.02 Hypoxemia; E78.00 Pure hypercholesterolemia, unspecified; E11.22 Type 2 diabetes mellitus with diabetic chronic kidney disease; N18.9 Chronic kidney disease, unspecified; I12.9 Hypertensive chronic kidney disease with stage 1 through stage 4 chronic kidney disease, or unspecified chronic kidney disease; Z79.4 Long term (current) use of insulin; Z79.899 Other long term (current) drug therapy; Z79.01 Long term (current) use of anticoagulants; Z98.1 Arthrodesis status; Z88.6 Allergy status to analgesic agent
CPT/HCPCS: 36415; 36600; 71045; 71275; 80048; 80053; 81003; 81015; 82803; 83036; 84484; 85014; 85018; 85025; 85610; 85730; 88305; 88311; 93005; 99284; A9270-GY; C1713; C1776; J0330; J0690; J1100; J2250; J2270; J2405; J2704; J3010; Q9967

== ENCOUNTER 2020-08-20 08:46 | Observation (INO) ==
[~2020-08-20 08:46] MED LIST: Buffered Lidocaine 1% SYRIN 1 ml INTRADERM ONE; DiMENhydriNATE IV 50 mg/ml 1 ml VIAL IV PUSH PRN; Lactated Ringers 1000 ml BAG 1,000 ML IV SCH; Naloxone 0.4 mg VIAL 0.4 mg/ml 1 ml VIAL IV PRN; Ondansetron 4 mg VIAL 2 MG/ML 2 ml VIAL IV PRN; fentaNYL 100 mcg/2 ml 50 MCG/ML VIAL IV PRN; oxyCODONE/Acetamin 5/325 mg TAB PO PRN
[2020-08-20] MEDS ORDERED: ceFAZolin 2 GM PREMIX 2 GM/50 ML BAG ONE (09:21)
[2020-08-20] MEDS ORDERED: Rocuronium 50 mg VIAL 10 mg/ml 5 ml VIAL (50 mg) ONE (09:26)
[2020-08-20] MEDS ORDERED: Ketamine HCL 50 mg/ml 10 ml VIAL (500 MG) ONE (09:26)
[2020-08-20] MEDS ORDERED: Propofol 10 MG/ML 20 ML BTL ONE ×2 (09:27→16:07)
[2020-08-20] MEDS ORDERED: Ondansetron 4 mg VIAL 2 MG/ML 2 ml VIAL ONE ×2 (09:27→12:10)
[2020-08-20] MEDS ORDERED: Lidocaine 2% PF 5 ML VIAL ONE (09:27)
[2020-08-20] MEDS ORDERED: fentaNYL 100 mcg/2 ml 50 MCG/ML VIAL ONE (10:39)
[2020-08-20] MEDS ORDERED: Dexamethasone IV 4 MG/ML VIAL 1 ml VIAL ONE ×2 (10:40)
[2020-08-20] MEDS ORDERED: Midazolam 2 mg/2 ml VIAL 1 mg/ml 2 ml VIAL (2 mg) ONE (10:40)
[2020-08-20] MEDS ORDERED: ROPIVACAINE 5 MG/ML 30 ML BTL (0.5%) ONE (10:40)
[2020-08-20] MEDS ORDERED: Ropivacaine 5 MG/ML 20 ML VIAL 0.5% (100 MG) ONE (11:42)
[2020-08-20] MEDS ORDERED: Vancomycin 1,000 MG VIAL ONE (11:45)
[2020-08-20] MEDS ORDERED: EPHEDrine (Pressors) 50 MG/ML VIAL ONE (13:05)
[2020-08-20] MEDS ORDERED: Labetalol IV 5 MG/ML 20 ml VIAL ONE (13:13)
[2020-08-20] MEDS ORDERED: Glycopyrrolate IV 0.2 MG/ML 1 ML VIAL ONE (13:17)
[2020-08-20] MEDS ORDERED: hydrALAZINE 20 mg/ml 1 ML Vial IV ONE (16:03)
[2020-08-20] MEDS ORDERED: diPHENhydraMINE 25 mg TAB PO PRN (16:22)
[2020-08-20] MEDS ORDERED: Magnesium Hydroxide LIQ 30 ML UDC PO PRN (16:22)
[2020-08-20] MEDS ORDERED: Ondansetron ODT 4 mg TAB 4 MG TAB PO PRN (16:22)
[2020-08-20] MEDS ORDERED: Morphine 2 MG/ML SYRINGE IV PRN (16:22)
[2020-08-20] MEDS ORDERED: diPHENhydraMINE IV 50 MG/ML 1 ml VIAL (BENADRYL) IV PRN (16:22)
[2020-08-20] MEDS ORDERED: Lactulose 30 ml UDC PO PRN (16:22)
[2020-08-20] MEDS ORDERED: Lactated Ringers 1000 ml BAG 1,000 ML IV SCH (17:00)
[2020-08-20] MEDS ORDERED: Dextrose 50% Syringe 50 ml 25 GM/50 ML SYRINGE IV PUSH PRN (17:08)
[2020-08-20] MEDS ORDERED: Glimepiride 2 mg TAB (NF) PO SCH (18:00)
[2020-08-20] MEDS: ceFAZolin 1 GM ADVAN 1 GM in NS 0.9% 50 ML 50 ML IVPB SCH (21:21)
[2020-08-20] MEDS: Magnesium Hydroxide LIQ 30 ML UDC PO SCH (21:21)
[2020-08-20] MEDS: Ondansetron 4 mg VIAL 2 MG/ML 2 ml VIAL IV PRN (21:21)
[2020-08-21] MEDS: Ondansetron 4 mg VIAL 2 MG/ML 2 ml VIAL IV PRN (04:20)
[2020-08-21] MEDS: ceFAZolin 1 GM ADVAN 1 GM in NS 0.9% 50 ML 50 ML IVPB SCH ×2 (04:21→12:46)
[2020-08-21 04:51] LABS: Hematocrit 31 % (42-52); Hemoglobin 10.4 g/dL (14.0-18.0); Mean Platelet Volume 7.3 fL (7.4-10.4); Platelet Count 242 10^3/uL (150-450)
[2020-08-21 05:08] LABS: BUN/Creatinine Ratio 15.4 (8-20); Calcium 9.4 mg/dL (8.6-10.3); EGFR African American 62.2 (>60); EGFR Non-African American 51.4 (>60); Potassium 4.5 mmol/L (3.5-5.0)
[2020-08-21] MEDS: Magnesium Hydroxide LIQ 30 ML UDC PO SCH (07:52)
[2020-08-21] MEDS ORDERED: Vitamin THERAPEUTIC TAB PO SCH (09:00)
[2020-08-21] MEDS ORDERED: Aspirin EC 81 mg TAB.EC (enteric coated) PO SCH (09:00)
[2020-08-21 11:37] VITALS: BP 114/55
== END 2020-08-21 14:50 | disposition home or self-care (01) ==
LOC: AA 08:46 → INTOOBSV 08:46 → SSU 17:58
PROVIDERS: ADMIT Orthopaedic Surgery; ATTEND Orthopaedic Surgery

== ENCOUNTER 2023-03-05 14:53 | Observation (INO) ==
[2023-03-05 15:52] LABS: ABS Basophils 0.2 10^3/uL (0.0-0.1); ABS Eosinophils 0.1 10^3/uL (0.0-0.5); ABS Lymphocytes 1.7 10^3/uL (1.0-4.8); ABS Monocytes 0.5 10^3/uL (0.0-1.1); ABS Neutrophils 4.2 10^3/uL (1.5-7.6); ABS Nucleated RBC 0.01 10^3/ul; Hematocrit 29.9 % (38-53); Hemoglobin 10.4 g/dL (13.2-16.3); Lymphocyte % 25.2 %; Mean Corpuscular Hemoglobin 32.5 pg (27-33); Mean Corpuscular Hgb Conc 34.7 g/dL (31-36); Mean Corpuscular Volume 93.5 fL (80-97); Mean Platelet Volume 7.8 fL (7.5-11.2); Nucleated Red Blood Cells % 0.1 /100 WBC (0.0-0.4); Platelet Count 174 10^3/uL (150-450); Red Cell Distribution Width 13.8 % (12-17); White Blood Count 6.7 10^3/uL (3.6-10.2)
[2023-03-05 16:14] LABS: INR 1.08 (0.83-1.13)
[2023-03-05 17:00] LABS: Albumin 3.9 g/dL (3.2-5.2); Albumin/Globulin Ratio 1.4 (1-3); Creatinine, Serum 1.31 mg/dL (0.67-1.17); Globulin 2.7 g/dL (2-4); Potassium 4.3 mmol/L (3.5-5.0); Total Bilirubin 0.8 mg/dL (0.2-1.0); Total Protein 6.6 g/dL (6.4-8.9); eGFR CKD-EPI 56.4 (>60)
[2023-03-05] MEDS ORDERED: Furosemide 40 mg/4 ml IV VIAL IV SLOW PU ONE (17:22)
[2023-03-05 17:47] LABS: High Sensitivity Troponin 1 Hr 9 pg/mL (<20)
[2023-03-05] MEDS ORDERED: Iodixanol (CONTRAST) 320 MG/ML 100 ML SDV IV ONE (17:57)
[2023-03-05 18:30] LABS: Urine Appearance Clear; Urine Bilirubin Negative (Negative); Urine Blood Negative (Negative); Urine Color Yellow; Urine Glucose 1+(50 mg/dL) (Negative); Urine Ketones Negative (Negative); Urine Nitrite Negative (Negative); Urine Protein Negative (Negative); Urine Specific Gravity 1.013 (1.002-1.030); Urine Urobilinogen Negative (Negative)
[2023-03-05 20:25] LABS: ABS Eosinophils 0.1 10^3/uL (0.0-0.5); ABS Lymphocytes 1.9 10^3/uL (1.0-4.8); ABS Monocytes 0.6 10^3/uL (0.0-1.1); ABS Neutrophils 3.8 10^3/uL (1.5-7.6); ABS Nucleated RBC 0.01 10^3/ul; Eosinophil % 1.3 %; Hemoglobin 10.6 g/dL (13.2-16.3); Lymphocyte % 29.4 %; Mean Corpuscular Hemoglobin 31.8 pg (27-33); Mean Corpuscular Hgb Conc 34.2 g/dL (31-36); Mean Corpuscular Volume 92.9 fL (80-97); Mean Platelet Volume 7.7 fL (7.5-11.2); Nucleated Red Blood Cells % 0.2 /100 WBC (0.0-0.4); Platelet Count 182 10^3/uL (150-450); Red Blood Count 3.34 10^6/uL (4.06-5.63); Red Cell Distribution Width 13.9 % (12-17); White Blood Count 6.3 10^3/uL (3.6-10.2)
[2023-03-05 20:38] LABS: Activated Partial Thrombo Time 31.1 seconds (26.0-38.0)
[2023-03-05 20:42] LABS: Creatinine, Serum 1.35 mg/dL (0.67-1.17); eGFR CKD-EPI 54.4 (>60)
[2023-03-05] MEDS ORDERED: Heparin 5000 UNITS/ML 1 mL VIAL IV SCH (21:00)
[2023-03-05] MEDS: Heparin DRIP 25,000 UNITS BAG 25,000 UNITS/500 ML BAG IV SCH (21:22)
[2023-03-05] MEDS ORDERED: Dextrose 50% Syringe 50 ml 25 GM/50 ML SYRINGE IV PUSH PRN (21:41)
[2023-03-05] MEDS ORDERED: Lactated Ringers 1000 ml BAG 1,000 ML IV SCH (23:00)
[2023-03-06 06:16] LABS: ABS Basophils 0.1 10^3/uL (0.0-0.1); ABS Eosinophils 0.1 10^3/uL (0.0-0.5); ABS Lymphocytes 1.7 10^3/uL (1.0-4.8); ABS Monocytes 0.5 10^3/uL (0.0-1.1); ABS Neutrophils 3.1 10^3/uL (1.5-7.6); ABS Nucleated RBC 0.02 10^3/ul; Eosinophil % 1.9 %; Hematocrit 28.8 % (38-53); Hemoglobin 10.2 g/dL (13.2-16.3); Lymphocyte % 30.9 %; Mean Corpuscular Hemoglobin 32.5 pg (27-33); Mean Corpuscular Hgb Conc 35.3 g/dL (31-36); Mean Corpuscular Volume 92.2 fL (80-97); Mean Platelet Volume 7.6 fL (7.5-11.2); Nucleated Red Blood Cells % 0.3 /100 WBC (0.0-0.4); Platelet Count 154 10^3/uL (150-450); Red Blood Count 3.13 10^6/uL (4.06-5.63); White Blood Count 5.5 10^3/uL (3.6-10.2)
[2023-03-06 06:32] LABS: Calcium 9.2 mg/dL (8.6-10.3); Creatinine, Serum 1.37 mg/dL (0.67-1.17); Potassium 3.8 mmol/L (3.5-5.0); eGFR CKD-EPI 53.5 (>60)
[2023-03-06 08:01] LABS: Magnesium 1.3 mg/dL (1.9-2.7)
[2023-03-06] MEDS ORDERED: Potassium Chlor 20 meq TAB.ER PO ONE (08:30)
[2023-03-06] MEDS: Heparin DRIP 25,000 UNITS BAG 25,000 UNITS/500 ML BAG IV SCH (13:58)
[2023-03-07 06:30] LABS: ABS Basophils 0.1 10^3/uL (0.0-0.1); ABS Eosinophils 0.1 10^3/uL (0.0-0.5); ABS Lymphocytes 1.8 10^3/uL (1.0-4.8); ABS Monocytes 0.8 10^3/uL (0.0-1.1); ABS Neutrophils 7.5 10^3/uL (1.5-7.6); Eosinophil % 0.9 %; Hematocrit 32.9 % (38-53); Hemoglobin 11.4 g/dL (13.2-16.3); Lymphocyte % 17.2 %; Mean Corpuscular Hgb Conc 34.6 g/dL (31-36); Mean Corpuscular Volume 92.5 fL (80-97); Mean Platelet Volume 7.6 fL (7.5-11.2); Platelet Count 168 10^3/uL (150-450); Red Blood Count 3.56 10^6/uL (4.06-5.63); Red Cell Distribution Width 13.8 % (12-17); White Blood Count 10.4 10^3/uL (3.6-10.2)
[2023-03-07 06:46] LABS: Creatinine, Serum 1.34 mg/dL (0.67-1.17); Magnesium 1.4 mg/dL (1.9-2.7); Potassium 4.6 mmol/L (3.5-5.0); eGFR CKD-EPI 54.9 (>60)
[2023-03-07] MEDS: Heparin DRIP 25,000 UNITS BAG 25,000 UNITS/500 ML BAG IV SCH (07:14)
[2023-03-07] MEDS ORDERED: Magnesium Sulf 4 GM/100 ML IV 4,000 MG/100 ML BAG IVPB ONE ×2 (07:25→07:26)
[2023-03-07 15:02] VITALS: BP 149/80
== END 2023-03-07 16:33 | disposition home or self-care (01) ==
LOC: EDHOLD 14:53 → ED 14:53 → SUATTDRO 19:55 → MEDTELE 03-06 17:29
PROVIDERS: ADMIT Student in an Organized Health Care Education/Training Program; ATTEND Internal Medicine